=== PATIENT | male | born 1940 | race Caucasian/White ===

== ENCOUNTER 2019-08-06 23:47 | Inpatient (IN) | payer MEDICARE, OTHER ==
[~2019-08-06] VITALS: Ht 175.3 cm; Wt 64.0 kg
--- NOTE | 2019-08-06 23:50 | NUR ---
PT BROUGHT TO ED FROM HOME BY [facility] AND [employer] FOR CHIEF COMPLAINT OF ALOC. PER MEDICS, PT IS ON HOSPICE FOR UNSPECIFIED TYPE OF CANCER AND IS NORMALLY A GCS OF 17 BUT WHEN HE SAW HIM THIS EVENING HE WAS ONLY RESPONSIVE TO PAIN AND NON-VERBAL. PER MEDICS, PT HAD RONCHI TO BILATERAL LUNGS AND WAS EXPERIENCING DIFFICULTY BREATHING, PT O2 SAT IN THE 60'S ON RA ON SCENE. PT PLACED ON NON-REBREATHER MASK AND O2 SAT INCREASED TO 92%. UPON ARRIVAL TO ED, PT NOTED WITH O2 SAT OF 55% ON RA AND AUDIBLE RONCHI AND RETRACTIONS, PER DR ABRAHAM PT DOES NOT HAVE A GAG REFLEX. PER DR ABRAHAM WE WILL BE INTUBATING PATIENT. PT MOVED FROM ORTHO TO T1 FOR CONTINUATION OF CARE.
--- NOTE | 2019-08-06 23:52 | NUR ---
PER MEDICS, PT TAKES PERCOCET AT HOME FOR PAIN MANAGEMENT. PER DR ABRAHAM WE WILL BE ADMINISTERING NARCAN.
--- NOTE | 2019-08-06 23:53 | NUR ---
1MG IVP NARCAN ADMINISTERED PER DR ABRAHAM VERBAL ORDER.
[2019-08-07] VITALS (19 sets, daily range): BP systolic 78–128; BP diastolic 51–78
--- NOTE | 2019-08-07 00:05 | NUR ---
PT SEDATED WITH 10MG ETOMIDATE IVP VIA R HAND IV. DR ABRAHAM AT BEDSIDE FOR INTUBATION, JONNIE RT AND TEENA RT AT BEDSIDE FOR ASSISTANCE, JON EMT AT BEDSIDE WELL. MEDS PUSHED BY MYSELF ASHLEY SALDAÑA. PT ON FULL CM.
--- NOTE | 2019-08-07 00:06 | NUR ---
PT INTUBATED BY DR ABRAHAM AT THIS TIME. PLACEMENT CONFIRMED BY CHEST RISE AND FALL, AUSCLTATION, AND IMPROVEMENT OF O2 SATURATION. TEENA RT BAGGING PT AT THIS TIME. 22@ THE LIP, 7.5 ETT, R SIDE PLACEMENT. SEE DOCUMENTATION FOR VENT SETTINGS.
--- NOTE | 2019-08-07 00:20 | NUR ---
XRAY AT BEDSIDE TO CONFIRM ETT PLACEMENT
[2019-08-07 00:47] LABS: PLATELET COUNT 320 x10^3mcL (130-400)
[2019-08-07 00:51] LABS: BASOPHIL % 0 % (0-2); RED CELL DISTRIBUTION WIDTH 17.4 % (11.5-14.5)
--- NOTE | 2019-08-07 00:53 | NUR ---
FIO2 TITRATED TO 40% PER DR. ABRAHAM VERBAL ORDER. SPO2 STABLE @ 100%. WILL CONTINUE TO MONITOR. RN NOTIFIED.
--- NOTE | 2019-08-07 00:54 | NUR ---
PER JONNIE RT FIO2 DECREASED TO 40% AT THIS TIME.
[2019-08-07 01:14] LABS: ALKALINE PHOSPHATASE 595 U/L (46-116); ALT/SGPT 54 U/L (16-63); AST/SGOT 86 U/L (15-37); BILIRUBIN TOTAL 0.36 mg/dL (0.20-1.00); CALCIUM 7.7 mg/dL (8.5-10.1); CHLORIDE SERUM 91 mmol/L (98-107); CREATININE SERUM 0.4 mg/dL (0.7-1.3); GLUCOSE SERUM 113 mg/dL (74-106); HDL CHOLESTEROL 38 mg/dL (40-60); SODIUM SERUM 127 mmol/L (136-145)
--- NOTE | 2019-08-07 01:14 | NUR ---
PT SON AT BEDSIDE SPEAKING TO PATIENT AT THIS TIME. PT NOTED TO NOD AND SHAKE HIS HEAD TO THE QUESTIONS HIS SON ASKS. PER PT SON RIZWAN, PT WOULD LIKE TO BE EXTUBATED, DR ABRAHAM AWARE.
[2019-08-07 01:15] LABS: ALBUMIN 1.3 g/dL (3.4-5.0); CHOLESTEROL 97 mg/dL (<200); TOTAL PROTEIN, SERUM 5.6 g/dL (6.4-8.2)
--- NOTE | 2019-08-07 01:15 | NUR ---
DR ABRAHAM AT BEDSIDE DISCUSSING PLAN OF CARE WITH PT SON. RT CALLED TO EXTUBATE PT.
--- NOTE | 2019-08-07 01:15 | NUR ---
PT FAMILY AWARE THAT PT IS UNABLE TO PROTECT HIS AIRWAY AT THIS TIME AND THAT EXTUBATING PT MAY RESULT IN . PT FAMILY AWARE AND WISH TO MOVE FORWARD WITH THE EXTUBATION.
[2019-08-07 01:17] LABS: CARBON DIOXIDE 42.7 mmol/L (21-32); POTASSIUM SERUM 5.9 mmol/L (3.5-5.1)
--- NOTE | 2019-08-07 01:20 | NUR ---
FAMILY WOULD LIKE TO WAIT 15MIN TO EXTUBATE PT TO ALLOW PT TO SEE PT. RT AWARE.
--- NOTE | 2019-08-07 01:40 | NUR ---
PER PT FAMILY THEY WOULD LIKE TO WAIT TO EXTUBATE THE PATIENT FOR X2 DAYS. PT FAMILY STATES THAT THEY WOULD LIKE TO SEE IF HE IMPROVES. DR ABRAHAM AWARE OF CHANGE OF PLAN OF CARE.
--- NOTE | 2019-08-07 02:34 | NUR ---
PT MEDICATED PER ORDER. FAMILY VERBALIZED UNDERSTANDING OF MEDICATION TEACHING. SEE EMAR FOR DETAILS.
[2019-08-07] MEDS ORDERED: LORAZEPAM0.5 MG PO (02:47)
[2019-08-07] MEDS ORDERED: METOPROLOL TART25 M1 PO (02:47)
[2019-08-07] MEDS ORDERED: GLYCOPYRROLATE1 M1 PO (02:48)
[2019-08-07] MEDS ORDERED: ZOF4 PO (02:48)
[2019-08-07] MEDS ORDERED: GOOD SENSE OMEP20 MG PO (02:48)
[2019-08-07] MEDS ORDERED: OXYCODONE HYDRO15 MG PO (02:49)
[2019-08-07] MEDS ORDERED: APAP500 MG PO (02:49)
[2019-08-07] MEDS ORDERED: AMBIEN10 MG PO (02:50)
--- NOTE | 2019-08-07 02:55 | NUR ---
PT FAMILY WISH TO MAKE HIM A DNR, EXPLAINED TO PT FAMILY THAT INPATIENT DOCTOR WILL HAVE THEM SIGN PAPERWORK.
[2019-08-07 03:00] LABS: UA SPECIFIC GRAVITY 1.025 (1.005-1.035); microscopic required? YES; urine erythrocyte NEGATIVE (NEGATIVE)
--- NOTE | 2019-08-07 03:13 | NUR ---
RECIEVED REPORT FROM PIOTR RAMIREZ. NURSING UPDATES. POC DISCUSSED. AWAITING PT ARRIVAL.
--- NOTE | 2019-08-07 03:13 | NUR ---
PT REPORT CALLED TO DEBORAH SALDAÑA TO ASSUME PT CARE.
--- NOTE | 2019-08-07 03:20 | NUR ---
PT TRANSFERRED TO ICU BED 4 BY MARY BY MYSELF, JON EMT, MARIAH EMT, JONNIE RT. PT ACCEPTED BY DEBORAH RN TO ASSUME PT CARE. PT REMAINS INTUBATED BUT AWAKE, EYES TRACKING APPROPRIATELY. PT DOES NOT APPEAR TO BE IN ANY ACUTE DISTRESS. PT TRANSFERRED FROM [facility] TO BED WITHOUT INCIDENT.
--- NOTE | 2019-08-07 03:30 | NUR ---
PT ARRIVED FROM ED W/ RN ASHLEY. NURSING UPDATES. RESUMED CARE OF PT. PT INTUBATED W/ NO SEDATION. ALERT AND ABLE TO FOLLOW SIMPLE COMMANDS. PERRL. ETT 7.5 @ 22LL AND OGT SECURE AND INTACT. VENT TO AC MODE FIO2 40%, RATE 16, VT 400, PEEP 5. O2 SAT 100%. NO S/S OF RESP DISTRESS. LUNG SOUNDS CLEAR ERI. PULSES MOD BUE& WEAK BLE. NSR HR 95 BP 96/60(71). S1S2 TO AUSC. L HAND/WRIST W/ SKIN TEAR DOCUMENTED AND BUTTOCKS W/ DRESSING C/D/I PHOTO'S TAKEN. NOTED PEG TUBE ABD C/D/I. R UPPER SIDED PORTICATH NOTED. F/C SECURE AND INTACT DRAINING FREELY TO GRAVITY. URINE PALE YELLOW. LAC 20G C/D/I W/ NORMAL SALINE NO S/S OF INFILTARTION. SCATTERED ECCHYMOSIS BUE&BLE. SKIN FRAIL.
--- NOTE | 2019-08-07 04:15 | NUR ---
PT FAMILY NOTIFED PER PT REQUEST TO HAVE CODE STATUS CHANGE FROM FULL CODE TO MODIFIED CODE W/ NO COMPRESSIONS. NOTIFIED DR MARTINEZ. DR MARTINEZ @ BEDSIDE.
[2019-08-07 05:59] LABS: PLATELET COUNT 326 x10^3mcL (130-400)
[2019-08-07 06:00] LABS: BASOPHIL % 0 % (0-2); RED CELL DISTRIBUTION WIDTH 17.9 % (11.5-14.5)
[2019-08-07 06:16] LABS: ALKALINE PHOSPHATASE 644 U/L (46-116); ALT/SGPT 59 U/L (16-63); AST/SGOT 89 U/L (15-37); BILIRUBIN TOTAL 0.53 mg/dL (0.20-1.00); CHLORIDE SERUM 89 mmol/L (98-107); CREATININE SERUM 0.5 mg/dL (0.7-1.3); GLUCOSE SERUM 96 mg/dL (74-106); POTASSIUM SERUM 5.1 mmol/L (3.5-5.1); SODIUM SERUM 128 mmol/L (136-145); TOTAL PROTEIN, SERUM 6.8 g/dL (6.4-8.2)
[2019-08-07 06:17] LABS: ALBUMIN 1.5 g/dL (3.4-5.0)
[2019-08-07 06:18] LABS: CARBON DIOXIDE 42.6 mmol/L (21-32)
--- NOTE | 2019-08-07 06:28 | NUR ---
PT RESTING CALMLY IN BED. NO ACUTE CHANGES. WILL ENDORSE.
--- NOTE | 2019-08-07 07:00 | NUR ---
RECEIVED REPORT FROM DEBORAH SALDAÑA. ALL QUESTIONS ANSWERED AND ADDRESSED. WILL ASSUME CARE
--- NOTE | 2019-08-07 09:19 | NUR ---
PT STATING 7/10 PAIN TO THE THROAT AND HIS PENILE AREA DUE TO BRANCH INSERTION. MEDICATED PER EMAR. WILL CONT TO MONITOR.
--- NOTE | 2019-08-07 09:35 | NUR ---
PATIENT ROUNDS WITH DR. PADILLA AND RESIDENTS. CHARGE NURSE AND PRIMARY NURSE AT BEDSIDE. UPDATES PROVIDED AND POC DISCUSSED. WILL CONTINUE TO MONITOR.
--- NOTE | 2019-08-07 12:45 | NUR ---
Initial Nutrition Assessment Dx: Respiratory failure, B/L PNA PMHx: Gastric/Esophageal cancer, Prostate cancer s/p radiation currently in remission PSHx: None Labs: (08/07) Na 128L, AST 89H, WBC 16.9H Meds: Cephulac, Morphine, Protonix, NSIV, Vancocin, Zofran, Zosyn Current Nutrition Support TF from home via PEG tube. Isosource at 60 mL/Hr with 25 mL FWF/Hr I/O: None documented at this time Residuals: None documented Ht: 175 cm Wt: 53 kg BMI: 17.3 (underweight) IBW: 160# %IBW: 73% UBW: 195-200# per son 1.5 years prior Age: 78 y/o elderly male Food Allergies: NKFA Skin: LLQ peg tube, scattered ecchymosis throughout body, skin tear to buttocks Yao: 11 Edema: None GI: Last BM -none since admission Trigger/consult received for TF. Per H and P documentations, pt. admitted with AMS. Pt. currently on home hospice care. Son and family members at bedside with pt. who remains intubated and sedated during visit. Son endorses that pt. receives Isosource at home, and would like to continue brining TF from home to continue nutrition support. States that pt. received Jevity 1.2 at another facility and was unable to tolerate the feedings with nausea and vomiting. No reported N/V at this time. Endorses gradual weight loss of about 30# from 1.5 years ago, due to decreased appetite 2/2 chemotherapy treatment and chronic illness. Problem with: N/V/D/C none Problems with: Chewing: Y Swallowing: Y Recent wt change: 30# x 18 months %wt change: 16% Vitamin/Supplement use: None Physical activity: None d/t chronic illness Education: Diet education is not appropriate at this time, as pt. is sedated and intubated, requiring nutrition support Estimated Nutritional Needs Based on acutal body weight 53 kg, Ve 7.4, T: 36.4 C Energy: 1295 vs 3581-0584 kcal/d (RMR X 2003 PSU vs 30-35 kcal/kg) Protein: 63-80 g/d (1.2-1.5 g/kg)-LBM preservation Fluid: 1295 ml/d (1 ml/kcal) or per doctor Nutrition Diagnosis 1. Underweight r/t chronic medical conditions and associated treatment AEB measured BMI 17.3. Intervention 1. Continue home EN infusion as ordered by provider/brought by family from home. Regimen meets >75% estimated needs. Monitor/Evaluate Goal: TF intake at least 75% of estimated needs Monitor: TF intake, TF tolerance, Labs, GI function F/U in 2-3 days as high risk (08/09-08/10)
--- NOTE | 2019-08-07 12:52 | NUR ---
Intervention 1. Continue home EN infusion as ordered by provider/brought by family from home. Regimen meets >75% estimated needs.
--- NOTE | 2019-08-07 13:36 | NUR ---
SCREEN FOR LOW NORMA SCALE AT RISK CONTINUE PRESSURE ULCER INJURY PREVENTION INTERVENTIONS: -TURN AND REPOSITION PATIENT Q 2H OFFLOAD LEFT AND RIGHT HIPS -ASSESS AND MONITOR SKIN CONDITION DURING POSITION CHANGE -OFFLOAD BILATERAL HEELS BY PLACING PILLOWS UNDER CALVES AT ALL TIMES, UNLESS OTHERWISE CONTRAINDICATED -PRESSURE REDISTRIBUTION SURFACE THERAPY -KEEP SKIN CLEAN AND DRY AT ALL TIMES.
--- NOTE | 2019-08-07 15:18 | NUR ---
OGT REMOVED AT THIS TIME PER DR. RODRIGUEZ DUE TO PT'S PEG TUBE TO LLQ ALREADY IN PLACE.
--- NOTE | 2019-08-07 19:30 | NUR ---
REC'D REPORT FROM ALEX SALDAÑA TO ASSUME CARE. PT INTUBATED WITH NO SEDATION. PT ALERT, ABLE TO FOLLOW COMMANDS. PERRLA NOTED. 7.5 ETT SECURED AT 23 CM LL. NO JVD NOTED. TRACHEA MIDLINE. ETT TO VENT: AC MODE RATE 16, TV 400, PEEP 4, FIO2 40%. CHEST RISE EQUAL AND SYMMETRICAL. LUNG SOUNDS CLEAR BUL, DIM BASES. CONSULTING SERVICES MANAGER IN PLACE SHOWING ST WITH HR 109. CHEST WALL STABLE. DENIES ANY CP. BP 107/63 MAP 80. PULSES PALPABLE X4. CAP REFILL < 3 SECS. BLE 2+ PITTING EDEMA. IV TO LAC INTACT AND PATENT, IVF NS INFUSING @ 100ML/HR. NPO AT THIS TIME. ABD FLAT, SOFT, NONDISTENDED. LUQ PEG TUBE INTACT AND PATENT. DENIES ANY N/V/D. F/C INTACT AND PATENT, DRAINING VIA GRAVITY YELLOW URINE. NO SCROTAL EDEMA. NO PENILE DISCHARGE NOTED. SKIN TEAR TO LEFT HAND AND LEFT BUTTOCK AND SACRUM AREA, DSG CDI. PT CALM AND COOPERATIVE. POSITIVE FAMILY SUPPORT AT BEDSIDE. GEN WEAKNESS. BUE SOFT WRIST RESTRAINTS IN PLACE FOR PT SAFETY. TURNED AND REPOSITIONED Q2H FOR PRESSURE RELIEF. FALL PRECAUTIONS APPLIED AND MAINTAINED. ALL NEEDS MET AT THIS TIME. WILL CONTINUE TO MONITOR.
--- NOTE | 2019-08-07 20:10 | NUR ---
PT AGITATED POINTING AT TUBE WANTING TO PULL OUT. BUE RESTRAINTS IN PLACE. FAMILY MEMBERS AT BEDSIDE TO CONSOLE PT.
--- NOTE | 2019-08-07 21:00 | NUR ---
PT WITH C/O THROAT PAIN AND UNABLE TO SLEEP. MORPHINE IVP GIVEN AT THIS TIME PER MD ORDER.
--- NOTE | 2019-08-07 22:00 | NUR ---
PT SEEN SLEEPING COMFORTABLY. FAMILY MEMBERS AT BEDSIDE.
[2019-08-08] VITALS (17 sets, daily range): BP systolic 95–123; BP diastolic 50–70
--- NOTE | 2019-08-08 04:45 | NUR ---
PTS SON AT BEDSIDE STATES PT C/O WANTING MORE AIR. JONNIE RT AT BEDSIDE TITRATED FIO2 TO 35%.
[2019-08-08 05:24] LABS: PLATELET COUNT 320 x10^3mcL (130-400)
[2019-08-08 05:25] LABS: BASOPHIL % 0 % (0-2); RED CELL DISTRIBUTION WIDTH 17.5 % (11.5-14.5)
--- NOTE | 2019-08-08 05:30 | NUR ---
TOTAL BED BATH PROVIDED, LINENS CHANGED. NO BM NOTED. REPOSITIONED TO COMFORT.
[2019-08-08 05:40] LABS: CALCIUM 7.8 mg/dL (8.5-10.1); CARBON DIOXIDE 39.6 mmol/L (21-32); CREATININE SERUM 0.4 mg/dL (0.7-1.3); GLUCOSE SERUM 69 mg/dL (74-106); MAGNESIUM 1.8 mg/dL (1.8-2.4); PHOSPHOROUS 3.6 mg/dL (2.5-4.9)
[2019-08-08 05:47] LABS: POTASSIUM SERUM 4.4 mmol/L (3.5-5.1); SODIUM SERUM 135 mmol/L (136-145)
[2019-08-08 05:48] LABS: CHLORIDE SERUM 97 mmol/L (98-107)
--- NOTE | 2019-08-08 07:00 | NUR ---
RECIEVED PT AWAKE AND ALERT. ABLE TO FOLLOW SIMPLE COMMANDS AND MAKE NEEDS KNOWN BY GESTURING AND NODDING. PERRL. NO FACIAL DROOP NOTED. SYMMETRICAL SMILE. 7.5 ETT @ 22 LL. TRACHEA MIDLINE. NO JVD. ETT TO VENT: VCV/AC MODE = 5 PEEP, 35% FIO2, 400VT, 16 RATE. RESPIRATIONS ARE EVEN AND UNLABORED. SYMM CHEST WALL EXPANSION. NO ADVENTITIOUS LUNG SOUNDS AUSCULTATED. NO S/S OF RESP DISTRESS NOTED. SINUS TACHYCARDIA ON FISCAL TECHNICIAN. +1 PITTING EDEMA TO BLE. SKIN IS COOL/DRY TO TOUCH, WARNER/BROWN TO BUE, PALE TO BLE. PIV TO LAC INTACT, PORT PATENT, DRESSING CDI. NS INFUSING @ 100 ML/HR. PEG TUBE TO LLQ INTACT, DRESSING CDI. ABD SYMMETRICAL AND ROUNDED. F/C INTACT AND DRAINING VIA GRAVITY. URINE IS YELLOW IN COLOR. NO PENILE DISCHARGE/BLEEDING, NO SCORTAL EDEMA. B/E SOFT WRIST RESTRAINTS APPLIED. JOINTS INTACT. NO CONTRACTURES. PT ABLE TO MOVE ALL EXTREMITIES. GEN WEAKNESS NOTED. HOB 30 DEGREES, X3 SIDE RAILS UP, BED IN LOWEST POSITION, CALL LIGHT WITHIN REACH. FAMILY AT BEDSIDE.
--- NOTE | 2019-08-08 07:00 | NUR ---
RECEIVED REPORT FROM MAO SALDAÑA. UPDATES PROVIDED. ALL QUESTIONS ANSWERED AND ADDRESSED. WILL ASSUME CARE.
--- NOTE | 2019-08-08 07:01 | NUR ---
REPORT GIVEN TO SHILPA SALDAÑA TO ASSUME CARE.
--- NOTE | 2019-08-08 08:00 | NUR ---
TUBE FEEDING FORMULA BROUGHT BY PT'S FAMILY - MARY MAHONEY. TUBE FEEDING INITIATED AT 10 ML/HR WITH 25CC FWF Q1H. GOAL RATE OF 60 ML/HR.
--- NOTE | 2019-08-08 08:45 | NUR ---
VANCOMYCIN TROUGH LEVEL RECEIVED AT 12. PHARMACY NOTIFIED AND CLARIFIED MEDICATION IS OKAY TO GIVE.
--- NOTE | 2019-08-08 10:01 | NUR ---
PATIENT ROUNDS WITH DR. PADILLA AND RESIDENTS. CHARGE NURSE AND PRIMARY NURSE AT BEDSIDE. UPDATES PROVIDED AND POC DISCUSSED. WILL CONTINUE TO MONITOR.
--- NOTE | 2019-08-08 10:10 | NUR ---
GILBERT MALCOLM AT BEDSIDE. PT PLACED ON CPAP AT THIS TIME. VSS.
--- NOTE | 2019-08-08 11:05 | NUR ---
GILBERT MALCOLM AT BEDSIDE. PT PLACED ON CPAP AT THIS TIME. VSS.
--- NOTE | 2019-08-08 12:03 | NUR ---
ISOSOURCE HN TUBE FEEDING ADVANCED TO 20 ML/HR. GRV = 50.
--- NOTE | 2019-08-08 12:08 | NUR ---
PT HAD A MOD AMNT OF LIGHT BROWN/YELLOW STOOL. PT CLEANED, CHUCKS AND GOWN CHANGED, BRANCH CARE COMPLETED. PT TOLERATED WELL WITH NO ACUTE DISTRESS.
--- NOTE | 2019-08-08 12:11 | NUR ---
GILBERT MALCOLM AT BEDSIDE. PT PLACED BACK ON VCV/AC MODE. VENT SETTINGS REMAIN THE SAME. VSS.
--- NOTE | 2019-08-08 19:05 | NUR ---
RECEIVED REPORT FROM SHILPA SALDAÑA. ASSUMING ALL CARE
--- NOTE | 2019-08-08 19:22 | NUR ---
RECEVIED PT LAYING IN BED. PT IS INTUBATED AND ON NO SEDATION. PT IS ABLE TO FOLLOW SIMPLE COMMANDS AND MAKE NEEDS KNOWN BY GESTURING AND WRITING ON PAPER. PUPILS WITH BRISK REACTION TO LIGHT, 3 MM BILAT. GAG REFLEX PRESENT. 7.5 ETT INTACT/SECURED, 22 CM @ LL. ORAL CARE PROVIDED PER VAP PROTOCOL. BREATHING IS E/U ON VENT. VENT SETTINGS: VCV/AC MODE, RATE 16, VT 400, PEEP 5, 35% FIO2. LUNGS SOUND CLEAR TO BUL AND DIMIN TO BLL. SYMMETRICAL CHEST EXPANSION NOTED. S1/S2 HEART SOUNDS AUSCULTATED. CHEST WALL EQUAL AND SYMMETRICAL. PORTACATH NOTED TO RIGHT UPPER CHEST. TS=382, BP 105/67, MAP 78. MOD PULSES NOTED TO BUE AND WEAK PULSES NOTED TO BLE. SKIN IS WARM AND DRY. +1 PITTING EDEMA NOTED TO BLE. CAP REFILL < [address] IV IN PL[address] WITH NO S/S OF INFILTRATION NOTED. NS INFUSING @ 100 ML/HR. SCD IN PLACE. GENERALIZED WEAKNESS. PT ON BEDREST. NO JOINT SWELLING/DEFORMITY NOTED. PT ON BILAT SOFT WRIST RESTRAINT FOR PT SAFETY, GOOD CIRCULATION NOTED. PT ON ISOSOURCE HN TF @ 30 ML/HR WITH 25 CC FWF Q1H. GRV=30, REPLACED. TOLERATING WELL. NO S/S OF N/V NOTED. ABD IS SOFT, ROUND, NONTENDER TO PALPATION. BOWEL SOUNDS ACTIVE X4 QUADRANTS. NO BM NOTED. PEG NOTED TO LLQ INTACT WITH DRESSING CDI. F/C IS INTACT/SECURED, DRAINING VIA GRAVITY WITH YELLOW COLORED URINE. NO SCROTAL EDEMA/PENILE DISCHARGE NOTED. SCATTERED ECCHYMOSIS NOTED TO BUE. SKIN TEAR TO LEFT WRIST WITH VERSATILE DRESSING IN PLACE. SKIN TEAR NOTED TO L BUTTOCK WITH OPTIFOAM DRESSING IN PLACE. PT ON ISOGEL MATTRESS. PT ON TURN SCHED Q2H AND PRN FOR COMFORT. FAMILY AT BEDSIDE. BED IN LOW POSITION. CALL LIGHT IN REACH. WILL CONT TO MONITOR
--- NOTE | 2019-08-08 20:14 | NUR ---
RT AT BEDSIDE FOR BREATHING TREATMENT
--- NOTE | 2019-08-08 20:40 | NUR ---
PT'S SON AT BEDSIDE. UPDATED ON PT'S STATUS. ALL QUESTIONS/CONCERNS ADDRESSED. PER PT'S SON, THE PT TAKES "SLEEPING MEDICATION" AT HOME AT 22:00. PT'S SON REQUESTING THE DOCTOR "ORDER HIM SOMETHING TO HELP HIM SLEEP". DR. OH MADE AWARE.
--- NOTE | 2019-08-08 22:00 | NUR ---
GRV=15. ISOSOURCE HN TF INCREASED TO 40 ML/HR WITH 25 CC FWF Q1H. WILL CONT TO MONITOR.
[2019-08-09] VITALS (18 sets, daily range): BP systolic 91–113; BP diastolic 52–72
--- NOTE | 2019-08-09 01:14 | NUR ---
PT NOTED WITH FACIAL GRIMACING. WHEN ASKED IF HE WAS IN PAIN, PT NODDED HEAD YES. PT MEDICATED WITH MORPHINE 2 MG IVP PER EMAR. WILL CONT TO MONITOR.
--- NOTE | 2019-08-09 02:00 | NUR ---
GRV=20. ISOSOURCE HN TF INCREASED TO 50 ML/HR WITH 25 CC FWF Q1H. WILL CONT TO MONITOR.
--- NOTE | 2019-08-09 05:04 | NUR ---
SUPERINTENDENT [employer] SERVICES AT BEDSIDE FOR AM LAB DRAW
[2019-08-09 05:50] LABS: CALCIUM 7.5 mg/dL (8.5-10.1); CARBON DIOXIDE 38.8 mmol/L (21-32); CHLORIDE SERUM 99 mmol/L (98-107); CREATININE SERUM 0.6 mg/dL (0.7-1.3); GLUCOSE SERUM 86 mg/dL (74-106); MAGNESIUM 1.9 mg/dL (1.8-2.4); PHOSPHOROUS 3.3 mg/dL (2.5-4.9); POTASSIUM SERUM 3.7 mmol/L (3.5-5.1); SODIUM SERUM 139 mmol/L (136-145)
[2019-08-09 05:55] LABS: BASOPHIL % 0.2 % (0-2); PLATELET COUNT 312 x10^3mcL (130-400)
--- NOTE | 2019-08-09 06:10 | NUR ---
FULL BED BATH PROVIDED. GOWN AND LINENS CHANGED. ORAL CARE, BRANCH, AND PERICARE PROVIDED. HEELS OFFLOADED. SCD REAPPLIED. NOTED WHEN CHANGING DRESSING FOR THE PEG TUBE, BUMPER WAS 2 INCHES AWAY FROM THE SKIN. DRESSING REMOVED AT THIS TIME. NOTED PEG TUBING TIP DISPLACED. TUBE FEEDING TURNED OFF AT THIS TIME. ABD NOTED SLIGHTLY DISTENDED. PT DENIES ANY ABD PAIN. DR. VELASQUEZ MADE AWARE. PER DR. VELASQUEZ, WILL ORDER KUB. WILL ANTICIPATE NEW ORDER.
--- NOTE | 2019-08-09 06:58 | NUR ---
REPORT GIVEN TO SHILPA SALDAÑA. ALL QUESTIONS/CONCERNS ADDRESSED. ENDORSING ALL CARE
--- NOTE | 2019-08-09 07:00 | NUR ---
RECIEVED REPORT FROM NICK SALDAÑA. UPDATES PROVIDED. WILL ASSUME CARE
--- NOTE | 2019-08-09 07:00 | NUR ---
RECIEVED PT INTUBATED WITH NO SEDATION. AWAKE AND ALERT. ABLE TO FOLLOW SIMPLE COMMANDS AND MAKE NEEDS KNOWN BY GESTURING, NODDING, AND WRITING. PUPILS 4MM IN SIZE AND BRISK B/E. PT'S GLASSES ON TABLE. 7.5 ETT @ 22 LL. ETT TO VENT: VCV/AC MODE = 5 PEEP, 35% FIO2, 16 RATE, 400 VT. RESPIRATIONS ARE E/U. SYMMETRICAL CHEST WALL EXPANSION NOTED. NO S/S OF RESP DISTRESS NOTED. NORMAL SINUS RHYTHM ON LINE OUT WORKER. HR = 98. NO S/S OF CP AT THIS TIME. ALEJANDRINA CATH NOTED TO R UPPER CHEST. TRACHEA MIDLINE. NO JVD PRESENT. +1 PITTING EDEMA TO BLE. SKIN IS WARM/DRY TO TOUCH, WARNER/BROWN IN COLOR TO BUE, PALE IN COLOR TO BLE. PIV TO L AC INTACT, PORT PATENT, DRESSING CDI. NS INFUSING @ 100 ML/HR. SCATTERED ECCHYMOSIS TO BUE. SKIN TEAR NOTED TO L WRIST WITH VERSATEL APPLIED. SKIN TEAR TO BUTTOCKS WITH DRESSING CDI. ABD IS SLIGHTLY FIRM, SYMMETRICAL, AND ROUNDED. HYPOACTIVE BOWEL SOUNDS X4. DRESSING TO LLQ DUE TO PEG TUBE DISLODGEMENT. F/C INTACT AND DRAINING VIA GRAVITY WITH NO DEPENDENT LOOPS NOTED. URINE IS YELLOW IN COLOR WITH GOOD OUTPUT. NO PENILE DISCHARGE/BLEEDING, NO SCROTAL EDEMA NOTED. B/E SOFT WRIST RESTRAINTS APPLIED FOR PT'S SAFETY. SCD TO BLE. ISOGEL MATTRESS IN USE. HOB 30 DEGREES, X3 SIDE RAILS UP, BED IN LOWEST POSITION, CALL LIGHT WITHIN REACH. FAMILY AT BEDSIDE.
--- NOTE | 2019-08-09 07:07 | NUR ---
XRAY AT BEDSIDE FOR KUB.
--- NOTE | 2019-08-09 08:10 | NUR ---
DR. RODRIGUEZ AT BEDSIDE ASSESSING PT. POC DISCUSSED WITH PATIENT AND PATIENT'S FAMILY MEMBERS. PT'S SON STATES THAT WHEN THE FAMILY GETS HERE, THEY PLAN ON EXTUBATING AND PLACING ON COMFORT CARE - MORPHINE GTT. AWAITING DR. RODRIGUEZ'S ORDERS AT THIS TIME. WILL CARRY OUT WHEN RECIEVED.
--- NOTE | 2019-08-09 08:15 | NUR ---
RT AT BEDSIDE ASSESSING PT. BREATHING TREATMENT BEING GIVEN AT THIS TIME.
--- NOTE | 2019-08-09 08:47 | NUR ---
DR. PADILLA AND RESIDENTS AT BEDSIDE ASSESSING PT. POC DISCUSSED. PT'S SON ASKING ABOUT A NEW PEG TUBE PLACEMENT. DR. PADILLA EXPLAINED THE PROCEDURE. PT'S SON WILL TALK TO PT ABOUT WHAT HIS WISHES ARE REGARDING PEG TUBE.
--- NOTE | 2019-08-09 09:21 | NUR ---
DRESSING TO LLQ SOILED WITH LIGHT BROWN/GREEN OUTPUT. NEW DRESSING APPLIED AT THIS TIME.
--- NOTE | 2019-08-09 11:00 | NUR ---
PT'S SON STATING THAT PT DOES NOT WANT TO BE EXTUBATED AND PLACED ON COMFORT CARE AND WANTS TO HAVE A FEEDING TUBE PLACED TO INITIATE TUBE FEEDINGS AGAIN. EXPLAINED TO THE PT'S SON THE RISKS OF PLACING G-TUBE. GAVE THE PT'S SON ANOTHER OPTION TO PLACE NGT FOR TUBE FEEDINGS. PT'S SON AGREED TO HAVE IT PLACED. DR. VELASQUEZ AND DR. RODRIGUEZ NOTIFIED OF THE FAMILY'S WISHES. ANTICIPATING ORDERS AT THIS TIME. WILL CARRY OUT ONCE RECIEVED.
--- NOTE | 2019-08-09 12:05 | NUR ---
PT GRIMACING AND NODDED THAT HE WAS IN PAIN. 2 MG OF MOORPHINE IVP GIVEN PER EMAR. WILL CONT TO MONITOR.
--- NOTE | 2019-08-09 12:19 | NUR ---
PT'S SON STATING THAT BEFORE THE PREVIOUS PEG TUBE PLACEMENT IN APRIL 2019, AN NGT COULDN'T BE PLACED DUE TO ULCERS AND BLOCKAGE BEFORE. PT'S SON STATED THAT DR. FELDER PLACED THE PEG TUBE. DR. VELASQUEZ NOTIFIED. SHE CONSULTED DR. FELDER AT THIS TIME AND STATED TO HOLD OFF ON INSERTING THE NGT,
--- NOTE | 2019-08-09 12:26 | NUR ---
GILBERT MALCOLM AT BEDSIDE ASSESSING PT. PT PLACED ON CPAP. VSS. WILL CONT TO MONITOR.
--- NOTE | 2019-08-09 13:02 | NUR ---
Follow-Up Nutrition Assessment Dx: Respiratory failure, B/L PNA Labs: (08/09) Ca 7.5L, WBC 13.4H Meds: Cephulac, Morphine, Protonix, NSIV, Vancocin, Zofran, Zosyn Current Nutrition Support TF Isosource @ goal rate 60 mL/Hr with 25 mL FWF Q1H brought in from home per family requests I/O: (08/09) 3683/1650 +2032 (08/08) 2273/1750 +523 TF intake: 525 mL (08/09) Residuals: 10 mL Weights: 53.3 kg Skin: LLQ peg tube, scattered ecchymosis throughout body, skin tear to buttocks Yao: 11 Edema: None GI: last BM 300 mL PEG tube dislodged at this time per provider progress notes and bedside RN; unable to provide tube feedings. Remains intubated during visit. Family is considering extubation and comfort care at this time per provider. No reports GI distress at this time or significant GRV from previous assessment. Estimated Nutritional Needs Based on actual body weight 53 kg, Ve 7.4, T: 36.4 C Energy: 1295 vs 8793-3697 kcal/d (RMR X 2003 PSU vs 30-35 kcal/kg) Protein: 63-80 g/d (1.2-1.5 g/kg)-LBM preservation Fluid: 1295 ml/d (1 ml/kcal) or per doctor Nutrition Diagnosis 1. Underweight r/t chronic medical conditions and associated treatment AEB measured BMI 17.3. (ongoing) Intervention 1. Continue home EN infusion as ordered by provider/brought by family from home. Regimen meets >75% estimated needs. Monitor/Evaluate Goal: TF intake at least 75% of estimated needs (not met) Monitor: TF intake, TF tolerance, Labs, GI function F/U in 2-3 days as high risk (08/12-08/14)
--- NOTE | 2019-08-09 13:03 | NUR ---
Intervention 1. Continue home EN infusion as ordered by provider/brought by family from home. Regimen meets >75% estimated needs.
--- NOTE | 2019-08-09 14:46 | NUR ---
GILBERT RT AT [facility] GIVING BREATHING TX.
--- NOTE | 2019-08-09 15:25 | NUR ---
LLQ DRESSING SOILED WITH SMALL AMNT OF GREEN DRAINAGE FROM PREVIOUS PEG TUBE PLACEMENT. NEW DRESSING APPLIED.
--- NOTE | 2019-08-09 18:23 | NUR ---
PT PUT BACK ON VCV/AC: RATE 16, TV 400, PEEP 5, FIO2 35%.
--- NOTE | 2019-08-09 19:05 | NUR ---
RECEIVED REPORT AND PATIENT FROM SHILPA SALDAÑA. RECEIVED PT INTUBATED, NO SEDATION, INTACT TO VENT. PT ATTACHED TO FULL FRUIT OR NUT CROPS FARM MANAGER AND CONTINUOUS PULSE OXIMETRY, NO ACUTE RESP DISTRESS. LAC 20 G INTACT, PORT PATENT, INFUSING NS @ 100 ML/HR. F/C DRAINING TO GRAVITY CLEAR YELLOW URINE, INTACT. BED AT LOWEST SETTING, CALL LIGHT WITHIN REACH, HOB ELEVATED 45 DEGRES PER PT COMFORT. SEE NURSE ASSESSMENT FOR MORE DETAILS.
--- NOTE | 2019-08-09 22:07 | NUR ---
PT REPORTING 7/10 GENERALIZED SHARP BACK PAIN. MEDICATED WITH MORPHINE PER EMAR.
[2019-08-10] VITALS (18 sets, daily range): BP systolic 97–150; BP diastolic 43–68
--- NOTE | 2019-08-10 02:40 | NUR ---
PT REPORTING 7/10 GENERALIZED SHARP BACK PAIN. WILL ADMINISTER MORPHINE IVP PER EMAR.
[2019-08-10 05:39] LABS: PLATELET COUNT 318 x10^3mcL (130-400)
[2019-08-10 05:48] LABS: BASOPHIL % 0 % (0-2); RED CELL DISTRIBUTION WIDTH 18.2 % (11.5-14.5)
[2019-08-10 05:55] LABS: CALCIUM 7.7 mg/dL (8.5-10.1); CARBON DIOXIDE 37.6 mmol/L (21-32); CHLORIDE SERUM 102 mmol/L (98-107); CREATININE SERUM 0.6 mg/dL (0.7-1.3); PHOSPHOROUS 3.7 mg/dL (2.5-4.9); POTASSIUM SERUM 3.6 mmol/L (3.5-5.1); SODIUM SERUM 141 mmol/L (136-145)
[2019-08-10 05:58] LABS: GLUCOSE SERUM 56 mg/dL (74-106)
--- NOTE | 2019-08-10 06:16 | NUR ---
D50 IVP GIVEN PER EMAR FOR GLUCOSE OF 56 PER MD ORDER.
--- NOTE | 2019-08-10 06:22 | NUR ---
D5 NORMAL SALINE GTT INTIATED @ 100 ML/HR, NORMAL SALINE GTT D/C'D AT THIS TIME PER MD ORDER.
--- NOTE | 2019-08-10 06:59 | NUR ---
BLOOD SUGAR RECHECK POST D50 IVP PER EMAR, BLOOD SUGAR NOW 133, DR. VELASQUEZ MADE AWARE.
--- NOTE | 2019-08-10 07:17 | NUR ---
GAVE REPORT TO PIOTR RAWLS. UPDATES GIVEN QUESTIONS ANSWERD. ENDORSED CARE.
--- NOTE | 2019-08-10 07:23 | NUR ---
RECEIVED PT'S REPORT FROM LEAVING NURSE. PT REST ON BED, EASILY AROUSED VIA AUDITORY STIMULI. REMOVED PT'S ERI SOFT WRIST RESTRAINTS PER HIS SON REQUEST. PT IS CALM WITHOUT SEDATION. PT BREATHING VIA VENT AC MODE, EVEN, UNLABORED. BRANCH IN PLACE, DRAINING VIA GRAVITY. G TUBE IS OUT, REDNESS AND GREENISH DRAINAGE NOTED. PT ON AIR MATTRESS. IV SITE PATENT, INTACT. IVF D5 NS INFUSING AT 100ML/HR. WILL CONTINUE TO MONITOR.
--- NOTE | 2019-08-10 08:48 | NUR ---
DR. FELDER AT BEDSIDE ASSESSED PT AND TALKED TO PT'S SON. US ABD G TUBE SITE TO RULE OUT ABSCESS IS ORDERED PER DR. FELDER.
--- NOTE | 2019-08-10 09:10 | NUR ---
RECHECK PT'S BS 97. PT NPO, IV D5 NS INFUSING AT 100ML/HR. WILL CONTINUE TO MONITOR. PT BREATHING ON CPAP MODE, TOLERATE WELL AT THIS TIME. PT'S SON AT BEDSIDE.
--- NOTE | 2019-08-10 09:25 | NUR ---
PATIENT ROUNDS WITH DR. PADILLA AND RESIDENTS. CHARGE NURSE AND PRIMARY NURSE AT BEDSIDE. UPDATES PROVIDED AND POC DISCUSSED. WILL CONTINUE TO MONITOR.
--- NOTE | 2019-08-10 17:04 | NUR ---
PT IS RESTING, BREATHING VIA VENT CPAP MODE. TOLERATE WELL. EVEN, UNLABORED. PT'S DAUGHTER AT BED SIDE.
--- NOTE | 2019-08-10 19:15 | NUR ---
RECIEVED REPORT FROM PIOTR RAWLS. POC DISCUSSED. NURSING UPDATES. RESUMED CARE OF PT. SEE SHIFT ASSESSMENT FOR ASSESSMENT.
--- NOTE | 2019-08-10 22:27 | NUR ---
ADM PRN PER ASSISTANCE CELE SALDAÑA MORPHINE FOR PT BACK PAIN. PAIN 06/10. SEE MAR FOR ADMIN TIME AND ADMIN.
--- NOTE | 2019-08-10 23:54 | NUR ---
SON ASKED ABOUT PROCEDURE TOMORROW FOR J TUBE PLACEMENT. NOTIFIED THAT DR HUTCHINS RECOMMENDED THAT THE NOTES HE PUT IN STATED THAT HE RECOMMEND IT NOT BE DONE. SON NOTIFIED AND BECAME UPSET, ASKED FOR PROCEDURE TO BE DONE AND FOR A RE-EVALUATION. SON NOTIFIED OF OTHER POSSIBILITIES. SON STATED "I KNOW THAT THE PROGNOSIS ISN'T GOOD/RECOMMENDED BUT HE CANT JUST SIT AND WATCH HIM " SON BECAME CALM WHEN OTHER OPTIONS WILL BE EVALUATED AND NOTE STATING THAT HE WOULD LIKE TO SEE WHAT CAN BE DONE.
[2019-08-11] VITALS (18 sets, daily range): BP systolic 111–159; BP diastolic 40–78
--- NOTE | 2019-08-11 01:03 | NUR ---
PT RESTING CALMLY IN BED. NO ACUTE CHANGES. VS WNL.
[2019-08-11 05:47] LABS: BASOPHIL % 0.3 % (0-2); PLATELET COUNT 309 x10^3mcL (130-400)
[2019-08-11 05:54] LABS: RED CELL DISTRIBUTION WIDTH 17.8 % (11.5-14.5)
--- NOTE | 2019-08-11 05:54 | NUR ---
PT CLEANED AND LINENS CHANGED. PT TOLERATED WELL. WILL ENDORSE TO ONCOMING RN.
[2019-08-11 06:01] LABS: CALCIUM 7.8 mg/dL (8.5-10.1); CARBON DIOXIDE 36.6 mmol/L (21-32); CHLORIDE SERUM 103 mmol/L (98-107); CREATININE SERUM 0.8 mg/dL (0.7-1.3); GLUCOSE SERUM 116 mg/dL (74-106); MAGNESIUM 1.9 mg/dL (1.8-2.4); PHOSPHOROUS 3.2 mg/dL (2.5-4.9); POTASSIUM SERUM 3.3 mmol/L (3.5-5.1); SODIUM SERUM 141 mmol/L (136-145)
--- NOTE | 2019-08-11 07:25 | NUR ---
RECEIVED PT'S REPORT FROM LEAVING NURSE. PT'S SON AT BEDSIDE. PT BREATHING ON VENT AC MODE, EVEN. BRANCH IN PLACE, DRAINING VIA GRAVITY. NO SCHEDULE FOR ANY SURGERY BY THIS TIME. PT'S SON AWARE. IVF D5NS INFUSING AT 50ML/HR, KCL IS INFUSING. WILL CONTINUE TO MONITOR.
--- NOTE | 2019-08-11 08:17 | NUR ---
DECREASED FiO2 TO 25%.
--- NOTE | 2019-08-11 09:36 | NUR ---
INCREASED FiO2 TO 30%.
--- NOTE | 2019-08-11 10:19 | NUR ---
DR RIZZO AND DR VELASQUEZ AT BEDSIDE. POC DISCUSSED BEDSIDE WITH FAMILY.
--- NOTE | 2019-08-11 12:02 | NUR ---
PT'S SON AT BEDSIDE. PT IS AWAKE, COMMUNICATE WITH THEM BY WRITING. PT BREATHING ON AC MODE, EVEN, UNLABORED. FIO2 30% AT THIS TIME.
--- NOTE | 2019-08-11 14:31 | NUR ---
DR RODRIGUEZ AT BEDSIDE TO ASSESS PATIENT. UPDATES PROVIDED TO PATIENT'S DAUGHTER WITH ALL QUESTIONS AND CONCERNS ADDRESSED.
--- NOTE | 2019-08-11 14:31 | NUR ---
DR. RODRIGUEZ AT BEDSIDE, PLACED PT ON CPAP 5 WITH PSV 15 AND FiO2 30%.
--- NOTE | 2019-08-11 16:53 | NUR ---
PT COMPLAIN OF STABBING PAIN AT THROAT BY GESTURES. RT CHACHA ADJUSTED ETT, BUT NOT HELP RESOLVE THE PAIN. MORPHINE 2MG GIVEN PER PRN ORDER.
--- NOTE | 2019-08-11 18:17 | NUR ---
DR FELDER ON UNIT TO ASSESS PATIENT. UPDATES PROVIDED BY NURSING. PER DR FELDER, HE WILL SPEAK WITH PATIENT TOMORROW REGARDING PLACEMENT OF NGT. WILL ENDORSE TO ONCOMING BATCH TRUCKER.
--- NOTE | 2019-08-11 18:21 | NUR ---
PT'S DAUGHTER AT BEDSIDE. PT RESTING, PAIN IS RELIEVED BY MORPHINE. PT IS STILL TACHYPENIC RR 25. WILL ENDORSE PT'S CARE TO COMING NURSE.
--- NOTE | 2019-08-11 19:15 | NUR ---
RECEIVED PT IN BED COMFORATBLY RESTING WITH FAMILY AT BEDSIDE.AOOX4. ABLE TO RESPONDS. NO ACUTE RESPIRATORY DISTRESS NOTED. DENIES ANY PAIN OR DISCOMFORT. 7.5 ETT@22CM LL. EENT FREE OF DISCHARGE. EDEMA TO BUE AND BLE. SCD IN PLACED. TURN Q2HR. F/C IN PLACED DRAINING TO GRAVITY WITH QASIM COLOR URINE. IV SITE PATENT AND INTACT. HOB ELEVATED. BED IN LOWEST POSITION,CALL LIGHT WITHIN REACH. WILL CONTINUE TO MONITOR.
--- NOTE | 2019-08-11 22:32 | NUR ---
PT FEELING DISCOMFORT. MEDICATED MORPHINE 2MG IV ORDERED. WILL CONTINUE TO MONITOR.
[2019-08-12] VITALS (16 sets, daily range): BP systolic 99–158; BP diastolic 56–80
--- NOTE | 2019-08-12 02:39 | NUR ---
WAS GOING TO MEDICATE PT FOR PAIN PER EMAR WITH HIGH HR AND RR. PT ALSO NODDING YES TO HAVING PAIN. WAS ABOUT TO ADMINISTER MEDICATION WHEN PT THEN REFUSED. WASTED MEDICATION, AND WITNESSED BY SECOND RN.
[2019-08-12 04:59] LABS: BASOPHIL % 0.1 % (0-2); PLATELET COUNT 305 x10^3mcL (130-400)
[2019-08-12 05:10] LABS: RED CELL DISTRIBUTION WIDTH 18.5 % (11.5-14.5)
[2019-08-12 05:11] LABS: CALCIUM 8.2 mg/dL (8.5-10.1); CARBON DIOXIDE 38.1 mmol/L (21-32); CHLORIDE SERUM 104 mmol/L (98-107); CREATININE SERUM 0.7 mg/dL (0.7-1.3); GLUCOSE SERUM 114 mg/dL (74-106); MAGNESIUM 2.1 mg/dL (1.8-2.4); PHOSPHOROUS 2.7 mg/dL (2.5-4.9); POTASSIUM SERUM 3.5 mmol/L (3.5-5.1); SODIUM SERUM 142 mmol/L (136-145)
--- NOTE | 2019-08-12 05:34 | NUR ---
PT APPEARS TO BE SLEEPING. NO ACUTE RESPIRATORY DISTRESS NOTED. DENIES ANY PAIN AT THIS TIME. F/C DONE. TURN Q2HR. BEDSIDE CARE DONE. IVF INFUSING WELL. HOB ELEVATED. BED IN LOWEST POSITION,CALL LIGHT WITHIN REACH. WILL CONTINUE TO MONITOR.
--- NOTE | 2019-08-12 06:23 | NUR ---
PT HAD EPISODE OF V TACH. HR UP TO THE 200'S. ONLY LASTED ABOUT 10 SECONDS. AUSCULTATED FOR HEART TONES. WILL CONTINUE TO MONITOR.
--- NOTE | 2019-08-12 08:15 | NUR ---
35 SEC OF SVT, CARDIAC STRIP PRINTED. RESOLVED WITHOUT INTERVENTION.
--- NOTE | 2019-08-12 08:50 | NUR ---
PLACED PT ON CPAP AT THIS TIME. PT TOLERATINH CPAP. WILL CONTINUE TO MONITOR.
--- NOTE | 2019-08-12 09:00 | NUR ---
PHARMACIST CALLED REGARDING RESPIRATORY CX C&S: STATED VANCO & ZOSYN ARE NOT EFFECTIVE HE THINKS LEVAQUIN WILL BE. WILL UPDATE RESIDENT AND CARRY OUT NEW ORDERS.
--- NOTE | 2019-08-12 09:00 | NUR ---
PT PUT ON CPAP BY KELLY RT, SET TO 15/5.
--- NOTE | 2019-08-12 10:20 | NUR ---
DR. FELDER, [facility], PT'S SON GERONIMO AND MYSELF IN PT'S ROOM TO DISCUSS PLAN OF CARE. PER DR. FELDER HE STATED HE CAN TRY AND PLACE AN NGT IF THAT IS WHAT THE PATIENT WISHES BUT MADE IT CLEAR TO PATIENT THAT IT IS NOT A [place]UR[place]TEE THAT THE NGT PLACEMENT WILL BE SUCCESSFUL. PT AWAKE AND ALERT AND ABLE TO COMMUNICATE THROUGH WRITING. PATIENT WRITING HE WOULD LIKE TO TRY TO HAVE NGT PLACED. PATIENT ALSO WRITING THAT "HE HAS KRYSTAL. NOTHING IS WRONG WITH HIM AND NOT EVEN A NAIL HURTS". PRIMARY RN AWARE OF THE ABOVE.
--- NOTE | 2019-08-12 11:41 | NUR ---
PT PLACED ON FIO2 100% BY RT DURING BEDSIDE NGT PLACEMENT BY DR. FELDER. WILL CONT TO MONITOR.
--- NOTE | 2019-08-12 11:43 | NUR ---
TIMEOUT DONE AT BEDSIDE FOR EGD WITH NJ TUBE PLACEMENT BY DR. FELDER. VITAL SIGNS STABLE AT THIS TIME. NO S/S DISTRESS. DR. FELDER AND GI LAB TEAM AT BEDSIDE FOR PROCEDURE. WILL CONTINUE TO MONITOR PT.
--- NOTE | 2019-08-12 12:00 | NUR ---
DR. RODRIGUEZ, DR. VELASQUEZ, PT'S SON GERONIMO AND MYSELF IN QUIET ROOM TO DISCUSS PLAN OF CARE. PT'S SON AGAIN VERBALIZING PT'S WISHES ARE "TO FIGHT UNTIL THE END". INFORMED PT'S SON THAT THE PT IS VERY WEAK AND IS NOT SURE HE WILL BE ABLE TO BE EXTUBATED. PT'S SON STATED THE ULTIMATE GOAL IS TO "TAKE THE TUBE OUT AND GET HIM HOME BUT, IF HE CAN'T BREATHE WHEN THE TUBE IS OUT HE WANTS IT BACK IN". DR. RODRIGUEZ STATED THAT WE WILL TRY TO EXTUBATE PT IN ORDER TO GET HIM HOME BUT IF WE ARE UNABLE TO EXTUBATE HE WILL NEED A TRACH. PT'S SON IN AGREEMENT FOR TRACH IF PT UNABLE TO BE EXTUBATED.
--- NOTE | 2019-08-12 12:08 | NUR ---
PT VENT SWITCHED BACK TO A/C MODE.
--- NOTE | 2019-08-12 12:15 | NUR ---
Follow-up Nutrition Assessment: IC04/A ROSARIO DE LA VEGARIZWAN FU HR Dx: Respiratory failure, B/L PNA PMHx: Gastric/Esophageal cancer, Prostate cancer s/p radiation currently in remission Labs: (08/12) BG 114H, CA 8.2L, Ammonia 40H, WBC 14.5H, HGB 8.3L Meds: D 50%, morphine, Pepcid, vancomycin, Zofran, zosyn, heparin Diet: NPO, no feeding PO Intake: NPO Weights: (08/10) 52.9 kg, (08/11) 53 kg, (08/12) 68.6 kg (fluctuations likely d/t edema) Skin: skin tear to L and R wrist, L buttocks with optifoam Yao: 12 I/Os: (08/11) 2166/550 (1616) Edema: BUE, BLE GI: Last BM RDN Visit (08/12): Patient is intubated and on ventilator. Per PIOTR Gray, pt will be having NJ placement with Dr. Waterman today. Spoke with patient's son, he said that patient does not tolerate Jevity and so they want to provide Isoscource HN which they will be bringing from home. I explained the son about the importance of having a semi-elemental or elemental formaula considering that the feeding are going to the jejunum and not stomach. Patient's son is wanting to try Vital AF 1.2. Per progress note (08/12), Patient is intubated and not sedated, Dr Joya: Jejunostomy is not recommended. Recommended palliative care. Dr Waterman: Recommended supportive care. He is not sure if he can do the endoscopy and place a nasojejunal tube by the endoscopic method. Estimated Nutritional Needs based on actual body weight 53 kg Energy: 1896-0898 kcal/d (RMR x PSU 2002 vs 30-35 kcal/kg) Protein: 63-80 g/d (1.2-1.5 g/kg) - LBM preservation Fluid: 4198-6769 (1ml/kcal) or per MD Nutrition Diagnosis 1. Malnutrition related to chronic medical conditions, PEJ placement questionable as evidenced by BMI 17.3 kg/m2. (ongoing) Intervention 1. Recommend Vital AF 1.2 @ 10 ml/hr, goal 55ml/hr. Advance 10 ml Q4H. FWF 80ml Q4H. Goal rate will provide 1585 kcal, 99g protein and 1070 ml free water. This will meet >75% of estimated calorie and protein needs of the patient. Discussed recommendations with Dr. Ugarte Monitor/Evaluate Goal: Have pt meet at least 75% of estimated needs Monitor: TF intake/ tolerance, Labs, GI function F/U in 2-3 days as high risk 08/14-
--- NOTE | 2019-08-12 13:33 | NUR ---
PT HAS MODERATE AMT DIVINA RED BLOOD COMING FROM ETT AND MOUTH. DR. FELDER WAS PAGED AND CALLED BACK TO THE UNIT, HE SAID TO JUST SUCTION PRN TO REMOVE SECRETIONS AND THAT HE BELIEVES IT IS FROM THE EGD PROCEDURE. PT OXYGEN SATURATION READING WENT DOWN TO 84%, SO FIO2 ON VENT WAS INCREASED TO 100%. PT SPO2 100% AT THIS TIME. WILL CONTINUE TO MONITOR PT.
--- NOTE | 2019-08-12 13:45 | NUR ---
PT PLACED ON CPAP AT THIS TIME / AND FIO2 35%.
--- NOTE | 2019-08-12 15:50 | NUR ---
TITRATED PT FIO2 FROM 35% TO 30%. PT SPO2 AT 95% PIOTR BERRIOS MADE AWARE OF THESE CHANGES. WILL CONTINUE TO MONITOR.
--- NOTE | 2019-08-12 15:50 | NUR ---
EDEMA NOTED TO PENIS AND SCROTUM, DR. VELASQUEZ NOTIFIED AND CAME TO BEDSIDE TO ASSESS PT. NO NEW ORDERS OR DIRECTIONS AT THIS TIME. PENIS AND SCROTUM SUPPORTED BY TOWEL ROLL AND PILLOWCASE FOR ELEVATION. WILL CONTINUE TO MONITOR PT.
--- NOTE | 2019-08-12 17:20 | NUR ---
SPOKE WITH DR. FELDER AND UPDATED HIM ON KUB RESULTS. PER DR. FELDER SVETLANA NJ IS IN PLACE AND OK TO USE. INSTRUCTED TO REMOVE WIRE AND INITIATE TF JEVITY AT 20ML/HR AND INCREASE BY 10 ML/HR Q 6HRS TO REACH GOAL RATE OF 50 ML/HR. ALSO STATED TO FLUSH NJ WITH 30-50CC OF FREE WATER FLUSH Q 4 HRS TO KEEP NJ OPEN. PER DR. FELDER "TELL THE NURSES TO MAKE SURE THEY CRUSH THE MEDS REALLY GOOD AND CHANGE WHAT THEY CAN TO LIQUID SO IT DOES NOT CLOGG. IF IT CLOGGS I AM NOT GOING TO BE ABLE TO DO IT AGAIN". PRIMARY RN AWARE OF THE ABOVE.
--- NOTE | 2019-08-12 19:10 | NUR ---
RECEIVED REPORT FROM SYEDA SALDAÑA. ASSUMING ALL CARE
--- NOTE | 2019-08-12 19:22 | NUR ---
RECEIVED PT LAYING IN BED. PT IS INTUBATED AND ON NO SEDATION. PT IS ABLE TO FOLLOW SIMPLE COMMANDS AND MAKE NEEDS KNOWN BY GESTURING AND WRITING ON PAPER. PUPILS WITH BRISK REACTION TO LIGHT, 3 MM BILAT. GAG REFLEX PRESENT. 7.5 ETT INTACT/SECURED, 22 CM @ LL. TRACHEA MIDLINE. NO JVD NOTED. ORAL CARE PROVIDED PER VAP PROTOCOL. BLOOD-TINGED SECRETIONS NOTED WHEN SUCTIONED. RIGHT NJ TUBE SECURED IN PLACE. BREATHING IS E/U ON VENT. VENT SETTINGS: VCV/AC MODE, RATE 16, VT 400, PEEP 5, 30% FIO2. CLEAR LUNG SOUNDS TO BUL AND DIMIN TO BLL. SYMMETRICAL CHEST EXPANSION NOTED. S1/S2 HEART SOUNDS AUSCULTATED. CHEST WALL EQUAL AND SYMMETRICAL. PORTACATH TO RIGHT UPPER CHEST. GN=591, BP 111/69, MAP 78. PALPABLE PULSES X4 EXTREMITIES. SKIN IS WARM. +1 PITTINED EDEMA NOTED TO BUE AND +2 PITTING EDEMA NOTED TO BLE. CAP REFILL < 3 SECS. RH IV IN PLACE WITH NO S/S OF INFILTRATION NOTED. D5NS INFUSING @ 50 ML/HR. SCD IN PLACE SKIN COLOR PALE TO BLE. GENERALIZED WEAKNESS. PT ON BEDREST. NO JOINT SWELLING/DEFORMITY NOTED. PT ON ISOGEL MATTRESS. AWAITING TO RECEIVE TUBE FEEDING AT THIS TIME. ABD IS SOFT, ROUND, NONTENDER TO PALPATION. BOWEL SOUNDS HYPOACTIVE X4 QUADRANTS. NO BM NOTED. F/C IS INTACT/SECURED, DRAINING VIA GRAVITY WITH YELLOW COLORED URINE. PENILE AND SCROTAL EDEMA NOTED, ELEVATED ON A PILLOW. SCATTERED ECCHYMOSIS NOTED TO BUE. SKIN TEAR NOTED TO RIGHT AND LEFT WRIST WITH VERSATILE DRESSING IN PLACE. SKIN TEAR TO L BUTTOCK WITH OPTIFOAM DRESSING IN PLACE. PT ON TURN SHED Q2H AND PRN FOR COMFORT. PT IS CALM AND COOPERATIVE. BED IN LOW POSITION. CALL LIGHT IN REACH. WILL CONT TO MONITOR.
--- NOTE | 2019-08-12 22:40 | NUR ---
WHILE ATTEMPTING TO INITIATE TUBE FEEDING, PT'S SON STS," THE LAST TIME THEY GAVE MY FATHER JEVITY TUBE FEEDING, HE DID NOT TOLERATE IT. HE WAS THROWING UP FOR 3 DAYS STRAIGHT. I THINK THIS FEEDING IS GOING TO MAKE HIM FEEL WORSE". PT'S SON REQUESTING TO GIVE PT'S HOME FEEDING, ISOSOURCE HN. DR. OH MADE AWARE. PER DR. OH, OK TO GIVE ISOSOURCE INSTEAD OF JEVITY. AWAITING ORDER
--- NOTE | 2019-08-12 23:10 | NUR ---
ISOSOURCE HN TUBE FEEDING INITIATED AT THIS TIME @ 20 ML/HR WITH 50 CC FWF Q4H. WILL CONT TO MONITOR
--- NOTE | 2019-08-12 23:37 | NUR ---
PT NOTED WITH FACIAL GRIMACING. WHEN ASKED IF PT WAS IN PAIN, PT NODDED HEAD YES. PT MEDICATED WITH MORPHINE 2 MG IVP PER EMAR. WILL CONT TO MONITOR
[2019-08-13] VITALS (18 sets, daily range): BP systolic 99–155; BP diastolic 49–75
--- NOTE | 2019-08-13 03:45 | NUR ---
FULL BED BATH PROVIDED. GOWN AND LINENS CHANGED. ORAL, BRANCH, AND PERICARE PROCIDED. HEELS OFFLOADED.
--- NOTE | 2019-08-13 04:45 | NUR ---
SHAPE HAND AT BEDSIDE FOR AM LAB DRAW
[2019-08-13 05:02] LABS: PLATELET COUNT 282 x10^3mcL (130-400)
--- NOTE | 2019-08-13 05:10 | NUR ---
GRV=0. ISOSOURCE HN TF ADVANCED TO 30 ML/HR WITH 50 CC FWF Q4H.
[2019-08-13 05:16] LABS: BASOPHIL % 0 % (0-2); RED CELL DISTRIBUTION WIDTH 17.8 % (11.5-14.5)
[2019-08-13 05:19] LABS: CARBON DIOXIDE 34.9 mmol/L (21-32); CHLORIDE SERUM 105 mmol/L (98-107); CREATININE SERUM 0.7 mg/dL (0.7-1.3); GLUCOSE SERUM 139 mg/dL (74-106); PHOSPHOROUS 2.8 mg/dL (2.5-4.9); POTASSIUM SERUM 3.2 mmol/L (3.5-5.1); SODIUM SERUM 143 mmol/L (136-145)
--- NOTE | 2019-08-13 07:05 | NUR ---
REPORT GIVEN TO SYEDA SALDAÑA. ALL QUESTIONS/CONCERNS ADDRESSED AT THIS TIME. ENDORSING ALL CARE
--- NOTE | 2019-08-13 07:40 | NUR ---
PLACED PT ON CPAP AT THIS TIME WITH A PSV OF 12. PT TOLERATING CPAP WELL AND IN NO DISTRESS. PIOTR BERRIOS AND RICHARD NOTIFIFED OF THIS SWITCH. WILL CONTINUE TO MONITOR.
--- NOTE | 2019-08-13 09:06 | NUR ---
PT TAKEN OFF CPAP D/T MULTIPLE EPISODES OF SVT. RR IN 30'S. RESIDENT PAGED, AWAITING CALL BACK TO GIVE UPDATE. WILL CONTINUE TO MONITOR PT.
--- NOTE | 2019-08-13 09:17 | NUR ---
DR. VELASQUEZ CALLED BACK TO UNIT, UPDATES PROVIDED REGARDING PT'S EPISODES OF SVT. SHE SUGGESTED BRINGING IT UP DURING ROUNDS AND TO CONTINUE MONITORING PT AT THIS TIME.
--- NOTE | 2019-08-13 09:24 | NUR ---
STAT EKG BEING DONE AT BEDSIDE.
--- NOTE | 2019-08-13 10:23 | NUR ---
5MG LOPRESSOR ADMINISTERED. HR BEFORE ADMINISTRATION 134, HR PRESENTLY 87. WILL CONTINUE TO MONITOR.
--- NOTE | 2019-08-13 12:07 | NUR ---
OPTIFOAM DRESSING ON COCCYX CHANGED, Z GUARD APPLIED, NEW PICTURE OF WOUNDS TAKEN AND PUT IN CHART.
--- NOTE | 2019-08-13 12:42 | NUR ---
SPOKE WITH SKOOG PATCHING MACHINE OPERATOR DYLAN AND INFORMED HER SHE HAD BEEN REQUESTED TO FOLLOW UP WITH PT IN REGARDS TO A PROPER TF GOAL RATE FOR PT. PER DYLAN SHE AGREES WITH GOAL RATE OF 50ML/HR AT THIS TIME. DYLAN IS AWARE PT IS CURRENTLY RECIEVING HOME FORMULA OF ISOSOURCE AND STATED SHE TOLD PT'S SON THAT SHE THINKS VITAL AF WOULD BE A MORE APPROPRIATE FORMULA. PER DYLAN OK TO CONTINUE CURRENT TF ORDER OF ISOSOURCE WITH GOAL RARTE 50ML/HR AND SHE WILL FOLLOW UP TOMORROW.
--- NOTE | 2019-08-13 12:57 | NUR ---
TUBE FEEDING RATE ADVANCED TO 40 ML/HR. WILL CONTINUE TO ASSESS PT FOR TOLERANCE.
--- NOTE | 2019-08-13 14:19 | NUR ---
PT REPOSITIONED FOR COMFORT AT THIS TIME. ON CPAP 09/05, TOLERATING WELL.
--- NOTE | 2019-08-13 14:30 | NUR ---
ATTEMPTED CPAP TRIALS AGAIN AT 1330. WEANING PARAMETERS OBTAINED DURING CPAP TRAIL. NIF, -28.0 VC, 450, RSBI 57.8. DR RODRIGUEZ, PIOTR BERRIOS AND PIOTR RAMOS NOTIFIED OF THE TRIAL AND PARAMETERS. PLACED PT BACK ON FULL SUPPORT AT THIS TIME DUE TO PT BEING TIRED. WILL CONTINUE TO MONITOR.
--- NOTE | 2019-08-13 14:34 | NUR ---
ANOTHER CARTON OF ISOSOURCE HN ADDED TO [place] FEEDING BAG. PT TOLERATING FEED WELL @ 40 ML/HR.
--- NOTE | 2019-08-13 18:17 | NUR ---
PT PERSISTENTLY IN SVT FOR THE LAST [address] OH CALLED, RN REQUESTED PRN TO BRING HR DOWN. SHE SAID SHE WOULD PUT AN ORDER IN. WILL CARRY OUT ORDER WHEN ENTERED. PT DENIES FEELING HIS HEART BEATING FAST.
--- NOTE | 2019-08-13 18:36 | NUR ---
PT HR 118 AT THIS TIME. NO PRN GIVEN. WILL CONTINUE TO MONITOR.
--- NOTE | 2019-08-13 19:20 | NUR ---
RECEIVED PT AND REPORT FROM SYEDA SALDAÑA. RECEIVED PT ATTACHED TO FULL RESEARCH RN SPEC, AND CONTINUOUS PULSE OXIMETRY. PT INTUBATED NO SEDATION INTACT TO VENT. NJ TUBE TO RIGHT NARE, INTACT, PATENT, AND SECURED. F/C DRAINING TO GRAVITY LOW OUTPUT, INTACT/SECURED. D5 NS INFUSING @ 50 CC/HR TO RIGHT HAND 20 G, PORT PATENT, DRESSING CDI. BED AT LOWEST SETTING, CALL LIGHT WITHIN REACH, HOB ELEVATED 30 DEGREES. SEE NURSING ASSESSMENT FOR MORE DETAILS.
--- NOTE | 2019-08-13 19:45 | NUR ---
DR. OH AT NURSING STATION MADE AWARE OF PT'S HR SPIKE TO 160-170'S, SVT ON MONITOR, INTERMITTENTLY THROUGHOUT THIS HOUR. PER DR. OH SHE WILL ORDER IVP METOPROLOL.
--- NOTE | 2019-08-13 21:05 | NUR ---
PT HAD A LOOSE MODERATE BROWN BOWEL MOVEMENT. PT PERIAREA CLEANED, NEW CHUCKS, GOWN, AND OPTIOFOAM CHANGED. Z-GUARD APPLIED TO PT'S ULCER TO BUTTUCK AREA, OPTIFOAM CDI. BRANCH CARE PROVIDED. PROVIDED PT WITH TOTAL CARE BED BATH. PT TOLERATED WELL. PT FLOATED WITH PILLOWS AND HEELS OFFLOADED WITH PILLOWS. [facility]
--- NOTE | 2019-08-13 22:23 | NUR ---
PT REPORTING 7/10 SHARP ABD PAIN. WILL MEDICATE WITH MORPHINE PER EMAR.
--- NOTE | 2019-08-13 23:20 | NUR ---
ISOSOURCE HN TF ADVANCED TO 50 ML/HR, GOAL RATE, WITH 50 CC FWF Q4H. GRV=0. NO S/S OF N/V.
[2019-08-14] VITALS (19 sets, daily range): BP systolic 101–148; BP diastolic 49–78
--- NOTE | 2019-08-14 04:55 | NUR ---
IV TO RIGHT HAND FOUND REMOVED, ANGIOCATH INTACT. RFA 20G IV INITIATED AT THIS TIME, PORT PATENT, NO S/S OF INFILTRATION, DRESSING CDI.
[2019-08-14 05:43] LABS: PLATELET COUNT 261 x10^3mcL (130-400)
[2019-08-14 05:44] LABS: BASOPHIL % 0 % (0-2)
[2019-08-14 05:56] LABS: CALCIUM 7.9 mg/dL (8.5-10.1); CARBON DIOXIDE 36.1 mmol/L (21-32); CHLORIDE SERUM 107 mmol/L (98-107); CREATININE SERUM 0.7 mg/dL (0.7-1.3); GLUCOSE SERUM 136 mg/dL (74-106); MAGNESIUM 1.9 mg/dL (1.8-2.4); PHOSPHOROUS 1.5 mg/dL (2.5-4.9); POTASSIUM SERUM 3.8 mmol/L (3.5-5.1); SODIUM SERUM 144 mmol/L (136-145)
--- NOTE | 2019-08-14 07:10 | NUR ---
GAVE REPORT TO PIOTR ALFONSO. UPDATES GIVEN, QUESTIONS ANSWERED. ENDORSED CARE.
--- NOTE | 2019-08-14 07:30 | NUR ---
PT RESTING IN BED WITH FAMILY PRESENT AT BEDSIDE. PT INTUBATED, NO SEDATION. PT ABLE TO FOLLOW SIMPLE COMMANDS AND ABLE TO MAKE NEEDS KNOWN BYUT GESTURING AND WRITING. PUPILS 3MM AND BRISK BILAT. NO FACIAL DROOP. 7.5 ETT TO VENT, AC MODE: 16 RATE, VT 400, PEEP 5, AND FIO2 30%. RIGHT NJ TUBE INTACT AND SECURED. EENT FREE OF DRAINAGE. TRACHEA MIDLINE. RESP E/U. LUNGS DIM IN BASES. SPO2 98% NO RESP DISTRESS NOTED. RT PROTOCOL. ORAL CARE PROVIDED. PT SINUS TACH ON MONITOR. S1S2 AUSCULTATED. PT DENIES CP AT THIS TIME. PALP PULSES, EDEMA NTOED TO BUE/BLE. BUE WEEPIGN, CHUCKS IN PLACE. ALL EXTRENMITIES ELEVATED ON PILLOWS. SKIN WATRM TO TOUCH AND CONSISTENT WITH ETHNICITY. RFA IV INFUSING D5NS @50. GENERALIZED WEAKNESS. REPOSITION Q2H FOR PRESSURE REDUCTION. ISOSOURCE INFUSING @ 50 WITH FWF 50 Q4H. NO RESIDUAL NOTED. PT DENIES N/V. ABDOMEN ROUND AND NONTENDER. HYPOACTIVE BS. PT DENIES N/V. NO BM NOTED AT THIS TIME. FC WITH POOR URINE OUTPUT DRAINING TO GRAVITY, SECURED IN PLACE. SCROTAL AND PENIS EDEMA NOTED. PT CALM AND COOPERATIVE AT THIS TIME. FAMILY PRESENT AT BEDSIDE. BED IN LOWEST POSITION. WILL CONT TO MONITOR
--- NOTE | 2019-08-14 08:03 | NUR ---
RT PRESENT AT BEDSIDE PROVIDING BREATHING TREATMENT
--- NOTE | 2019-08-14 11:00 | NUR ---
BLADDER SCAN COMPLETE, EST 500 PER SCAN. BRANCH BALLOON DEFLATED AND BRANCH ADVANCED. PT DENIES ABDOMINAL PAIN OR DISCOMFORT. NOTED SLIGHT URINE ON ON CHELSEA. PT CLEANED AT THIS TIME. WILL CONT TO MONITOR
--- NOTE | 2019-08-14 11:43 | NUR ---
Follow-up Nutrition Assessment: IC04/A RIZWAN BALDWIN FU HR Dx: Respiratory failure, B/L PNA PMHx: Gastric/Esophageal cancer, Prostate cancer s/p radiation currently in remission Labs: (08/14) BG 136H, BUN 23H, CA 7.9L, ALB 1.5L, WBC 17.5H, HGB 7.4L Meds: D 50%, morphine, lopressor, Pepcid, Zofran, heparin Diet: NJ Jevity 1.2 @ 20 ml/hr, goal 50 ml/hr, advance 10 ml Q6H, FWF 30-50cc Q4H (use patient's home formula Isoscource HN) PO Intake: NPO Weights: (08/11) 53 kg, (08/12) 68.6 kg, (08/14) 60.5 kg (fluctuations likely d/t edema) Skin: scattered ecchymosis BUE, L buttock ulcer with optifoam Yao: 11 I/Os: (08/14) 2630/175 (2455) Edema: BUE, BLE GI: Last BM: RDN Visit (08/14): Patient is intubated and on ventilator. PEJ tube was placed by Dr. Waterman and he started the patient on TF Jevity 1.2, Patients' family thinks that patient does not tolerate Jevity and therefore they insisted on starting Isoscource HN that they bring from home. Spoke with Dr. Waterman and Dr. Ugarte, they both are aggregable to start Vital AF as per RD's recommendations. Per previous visit note (08/12), I explained the son about the importance of having a semi-elemental or elemental formula considering that the feeding are going to the jejunum and not stomach. Patient's son is wanting to try Vital AF 1.2. Estimated Nutritional Needs based on actual body weight 53 kg Energy: 6774-8445 kcal/d (RMR x PSU 2002 vs 30-35 kcal/kg) Protein: 63-80 g/d (1.2-1.5 g/kg) - LBM preservation Fluid: 6831-0528 (1ml/kcal) or per MD Nutrition Diagnosis 1. Malnutrition related to chronic medical conditions, PEJ placement questionable as evidenced by BMI 17.3 kg/m2. (ongoing) Intervention 1. Recommend Vital AF 1.2 @ 10 ml/hr, goal 55ml/hr. Advance 10 ml Q4H. FWF 80ml Q4H. Goal rate will provide 1585 kcal, 99g protein and 1070 ml free water. This will meet >75% of estimated calorie and protein needs of the patient. Discussed recommendations with Dr. Ugarte Monitor/Evaluate Goal: Have pt meet at least 75% of estimated needs Monitor: TF intake/ tolerance, Labs, GI function F/U in 2-3 days as high risk 08/16-
--- NOTE | 2019-08-14 14:16 | NUR ---
PT HAD LOOSE BROWN BM AT THIS TIME. CLEANED AND REPOSITIONED. SUCTIONING AND ORAL CARE PROVIDED. VSS. WILL CONT TO MONITOR.
--- NOTE | 2019-08-14 15:00 | NUR ---
PT REFUSING REPOSITIONING AT THIS TIME. PT EDUCATED ON IMPORTANCE OF REPOSITIONING. PT VERBALIZED UNDERSTANIND BUT DOES NOT WANT TO BE REPSOITIONED. FAMILY AT BEDSIDE TRWEID TO CONVINCE PT, PT REFUSED. WILL CONT TO MONITOR
--- NOTE | 2019-08-14 15:40 | NUR ---
DR VAZQUEZ AT BEDSIDE TO ASSESS PATIENT. UPDATES PROVIDED TO FAMILY WITH ALL QUESTIONS AND CONCERNS ADDRESSED.
--- NOTE | 2019-08-14 18:40 | NUR ---
PT RESTING IN BED WITH FAMILY PRESENT. ABDOMINAL DRESSING CHANGED AT THIS TIME. BRANCH CARE PROVIDED. PT CLEANED AND AGREEABLE TO REPOSITIONING AT THIS TIME. WILL CONT TO MONITOR
--- NOTE | 2019-08-14 19:05 | NUR ---
RECEIVED REPORT FROM KADEN SALDAÑA. WILL RESUME CARE.
--- NOTE | 2019-08-14 19:15 | NUR ---
PT ENDORSED TO CELE SALDAÑA. ALL QUESTIONS AND CONCERNS ADDRESSED
--- NOTE | 2019-08-14 21:39 | NUR ---
PT HAD LARGE SOFT BM. PT CLEANED AND NEW OPTIFOAM PLACED TO SACRAL AREA. OFFLOADED PT WITH PILLOWS.
--- NOTE | 2019-08-14 22:06 | NUR ---
PT C/O 03/11 BACK PAIN. GIVEN TYLENOL 650MG VIA NG TUBE. WILL REASSESS FOR RELIEF.
[2019-08-15] VITALS (16 sets, daily range): BP systolic 102–139; BP diastolic 64–82
--- NOTE | 2019-08-15 04:25 | NUR ---
[facility]IGHWAY PATROL PILOT AT BEDSIDE FOR BLOOD DRAW.
[2019-08-15 04:58] LABS: BASOPHIL % 0.1 % (0-2); PLATELET COUNT 239 x10^3mcL (130-400)
[2019-08-15 05:06] LABS: CALCIUM 8.1 mg/dL (8.5-10.1); CARBON DIOXIDE 33.9 mmol/L (21-32); CHLORIDE SERUM 107 mmol/L (98-107); CREATININE SERUM 0.7 mg/dL (0.7-1.3); GLUCOSE SERUM 107 mg/dL (74-106); MAGNESIUM 1.7 mg/dL (1.8-2.4); PHOSPHOROUS 2.1 mg/dL (2.5-4.9); POTASSIUM SERUM 4.4 mmol/L (3.5-5.1); SODIUM SERUM 143 mmol/L (136-145)
[2019-08-15 05:14] LABS: RED CELL DISTRIBUTION WIDTH 17.7 % (11.5-14.5)
--- NOTE | 2019-08-15 06:32 | NUR ---
DR. OSWALD AT BEDSIDE ASSESSING PT. UPDATES PROVIDED. MADE AWARE OF LAB VALUES PHOS 2.1, MAG 1.7, HGB 7.4.
--- NOTE | 2019-08-15 07:02 | NUR ---
GAVE REPORT TO KADEN SALDAÑA. ALL QUESTIONS AND CONCERNS ADDRESSED.
--- NOTE | 2019-08-15 07:30 | NUR ---
REPORT RECEIVED FROM PIOTR OAKLEY. PT RECEIVED RESTING IN BED, BED IN LOWEST POSITION, HOB 30 DEGREES, BED WHEELS LOCKED. PT APPEARS COMFORTABLE, NO S/S DISTRESS NOTED. PT INTUBATED, VENT ON A/C VT 400, RATE 14, PEEP 5, FIO2 30%. VSS, HR 99, BP 120/65 (76), O2 97%, RR 22, T 97.9 F. PT AROUSABLE TO VOICE, FOLLOWS COMMANDS, IS ABLE TO COMMUNICATE NEEDS BY GESTURING AND WRITING ON PAPER. WILL CONTINUE MONITORING PT.
--- NOTE | 2019-08-15 08:15 | NUR ---
BRANCH CARE PROVIDED.
--- NOTE | 2019-08-15 09:16 | NUR ---
PT C/O SECRETIONS IN NOSE. RN SUCTIONED NOSE WITH YANKAUER AND PT REPORTED REDUCED NASAL CONGESTION. YANKAUER FOR NOSE ON BEDSIDE TABLE.
--- NOTE | 2019-08-15 10:00 | NUR ---
DR. VAZQUEZ AT BEDSIDE. UPDATES PROVIDED, QUESTIONS ANSWERED. NO CHANGES IN POC AT THIS TIME.
--- NOTE | 2019-08-15 10:03 | NUR ---
PT PUT ON CPAP / BY RT. RR 27, SPO2 96%. NO S/S RESPIRATORY DISTRESS AT THIS TIME. WILL CONTINUE TO MONITOR PT FOR S/S RESPIRATORY DISTRESS.
--- NOTE | 2019-08-15 10:17 | NUR ---
PT PUT BACK ON A/C MODE ON VENT D/T BECOMING TACHYPNEIC TO LOW 30'S RR & SPO2 OF 95%. VENT SENT TO A/C VT 400, FIO2 30%, RATE 16, PEEP 5. WILL CONTINUE TO MONITOR PT.
--- NOTE | 2019-08-15 11:15 | NUR ---
PT HAD 1 LOOSE BROWN BM AT THIS TIME. MODERATE AMT. HYGIENE CARE PROVIDED.
--- NOTE | 2019-08-15 11:30 | NUR ---
DR. CASTELAN AND RESIDENTS AT BEDSIDE. RN UPDATED DR. FRANCIS RE: WBC'S TRENDING UP SINCE CHANGING ABX, ABOUT LOW HGB AND HCT, AND ABOUT LOW PHOSPHOROUS. DR. FRANCIS CHANGED PT BACK TO [facility] FROM [facility]; NO ORDERS FOR BLOOD TRANSFUSION AT THIS TIME; DR. FRANCIS ADDED ORDERS FOR PHOSNAK. WILL CARRY OUT NEW ORDERS.
--- NOTE | 2019-08-15 11:46 | NUR ---
PT C/O BLADDER FEELING FULL. LOW AMT URINE DRAINING INTO BRANCH BAG. RN IRRIGATED F/C TO SEE IF BLOCKED. F/C FLUSHED EASILY, SOME URINE DRAINED INTO BRANCH BAG. PT URINATED AROUND F/C INSERTION INTO TOWEL. HYGIENE CARE PROVIDED, TOWEL AND CHUX REPLACED. WILL CONTINUE TO MONITOR.
--- NOTE | 2019-08-15 11:59 | NUR ---
PT C/O HIS STOMACH FEELING FULL, SO THE TUBE FEEDING HAS BEEN SET TO PAUSE FOR 30 MIN. NO RESIDUAL ASPIRATED FROM NJT. WILL CONTINUE TO MONITOR PT.
--- NOTE | 2019-08-15 12:39 | NUR ---
PT MEDICATED WITH PRN MORPHINE D/T 07/11 PAIN. WHEN ASKED WHERE THE PAIN WAS HE POINTED TO HIS PELVIC REGION AND BACK. WILL REASSESS PAIN LEVEL.
--- NOTE | 2019-08-15 13:37 | NUR ---
PT DENIES PAIN AT THIS TIME.
--- NOTE | 2019-08-15 13:44 | NUR ---
FAMILY OF PT AT BEDSIDE. PT APPEARS CALM, CONTENT.
--- NOTE | 2019-08-15 13:45 | NUR ---
PT DENIES ABDOMINAL DISCOMFORT AND FULL FEELING THAT HE EXPRESSED EARLIER. TUBE FEEDING RESUMED.
--- NOTE | 2019-08-15 16:09 | NUR ---
DRESSING ON LLQ CHANGED. GREEN LIQUID DRAINAGE NOTED ON GAUZE AND ABD PAD. NEW GAUZE AND ABD PAD TAPED TO ABDOMEN. EXCORIATION NOTED AROUND EX-PEG SITE, Z GUARD PUT AROUND OPENING IN SKIN.
--- NOTE | 2019-08-15 16:12 | NUR ---
OPTIFOAM REPLACED ON COCCYX. HYGIENE CARE GIVEN, PT REPOSITIONED ONTO RIGHT SIDE TO OFFLOAD PRESSURE. SMALL AMT SANGUINOUS DRAINAGE NOTED ON OLD OPTIFOAM.
--- NOTE | 2019-08-15 16:25 | NUR ---
PT C/O ABDOMEN FEELING SWOLLEN/FULL. TUBE FEEDING HELD AGAIN AND TO RESUME AFTER 30 MIN. WILL CONTINUE TO MONITOR PT.
--- NOTE | 2019-08-15 17:25 | NUR ---
PT GIVEN 2MG PRN MORPHINE FOR 8/10 PAIN.
--- NOTE | 2019-08-15 18:07 | NUR ---
PT DENIES PAIN AT THIS TIME.
--- NOTE | 2019-08-15 19:45 | NUR ---
RECEIVED REPORT FROM PIOTR LANDA. PT IS ALERT AND ABLE TO FOLLOW COMMANDS. PUPILS 3 MM AND BRISK BILATERALLY. PT IS BREATHING E.U ON VENT. SETTINGS INCLUDE RATE: 16, TV: 400, O2: 30%, PEEP: 5. LUNG SOUNDS SHOW FINE CRACKLES TO BILATERAL UPPER LOBES, DIMINSHIED TO BILATERAL LOWER LOBES. S1 S2 HEART SOUNDS AUSCULTATED. SINUS TACHYCARDIA ON THE MONITOR. PULSES MODERATE X2 BUE, WEAK X2 BLE. CAP REFILL <3 SECS. SKIN IS WARM AND CONSISTENT WITH ETHNICITY. PERIPHERAL IV TO RIGHT WRIST PATENT, DRESSING CDI. D5 NS INFUSING AT 50 ML/HR. ABD IS SOFT AND FLAT WITH ACTIVE BOWEL SOUNDS X4Q. RIGHT NGT PATENT AND INTACT. ALEJANDRINA CATH TO RIGHT UPPER CHEST NOT IN USE. VITAL AF INFUSING AT 30 ML/HR, WITH 10 ML OF RESIDUAL. PT HAS OPENING FROM G TUBE TO RIGHT LOWER QUADRANT, DRESSING CDI WITH SLIGHT GREEN DISCHARGE. BRANCH DRAINING VIA GRAVITY. URINE IS QASIM WITH FAIR OUTPUT. FAMILY AT BEDSIDE. WILL CONTINUE TO MONITOR.
[2019-08-16] VITALS (15 sets, daily range): BP systolic 107–138; BP diastolic 48–84
--- NOTE | 2019-08-16 01:20 | NUR ---
CALLED DR. GOODEN. PT COMPLAINING OF PAIN UPON URINATION. PT STATES HE FEELS FULL, AND THAT HE IS ONLY URINATING IN SMALL AMOUNTS AT A TIME. ATTEMPTED TO TROUBLE SHOOT BUT WITH NO SUCCESS. DAY SHIFT MADE ME AWARE THAT THEY PERFORMED A BLADDER SCAN AND THAT THERE WAS ABOUT 500 ML OF URINE IN THE BLADDER. DR. GOODEN ORDERED AN ULTRASOUND OF THE BLADDER.
--- NOTE | 2019-08-16 05:00 | NUR ---
PROVIDED PT WITH FULL BED BATH, BRANCH CARE, AND VAP CARE. ALL SUCTION EQUIPMENT CHANGED OUT. PT TOLERATED WELL. DRESSING CHANGED ON OLD G TUBE SITE.
--- NOTE | 2019-08-16 05:30 | NUR ---
ANNEALER AT BEDSIDE FOR CXR.
[2019-08-16 05:42] LABS: BASOPHIL % 0.1 % (0-2); PLATELET COUNT 243 x10^3mcL (130-400)
[2019-08-16 05:44] LABS: RED CELL DISTRIBUTION WIDTH 18.4 % (11.5-14.5)
[2019-08-16 06:02] LABS: CALCIUM 8.1 mg/dL (8.5-10.1); CARBON DIOXIDE 35.9 mmol/L (21-32); CHLORIDE SERUM 108 mmol/L (98-107); CREATININE SERUM 0.8 mg/dL (0.7-1.3); GLUCOSE SERUM 105 mg/dL (74-106); PHOSPHOROUS 3.3 mg/dL (2.5-4.9); POTASSIUM SERUM 4.7 mmol/L (3.5-5.1); SODIUM SERUM 144 mmol/L (136-145)
--- NOTE | 2019-08-16 07:30 | NUR ---
RC'D PT RESTING IN BED WITH NO APPARENT SIGNS OF DISTRESS. PT INTUBATED, NO SEDATION. PT ABLE TO FOLLOW SIMPLE COMMANDS AND ABLE TO MAKE NEEDS KNOWN BY GESTURING. PUPILS 3MM AND BRISK BILAT. PERRLA. NO FACIAL DROOP NOTED. 7.5 ETT INTACT AND SECURED, 22 LL. RIGHT NJT INTACT AND SECURED. NO EENT DRAINAGE NOTED. ETT TO VENT, AC MODE: R16 VT 400, FIO2 30, PEEP 5. RESP E/U LUNGS DIM IN BASES. NO S/S OF RESP DISTRESS NOTED. SINUS TACH ON MONITOR, HR108. PT DENIES CP. S1S2 AUSCULTATED. PALP PULSES, EDEMA NOTED TO BUE/BLE. BUE WEEPING. SKIN WARM/COOL TO TOUCH AND CONSISTENT WITH ETHNICITY. EXTREMITIES ELEVATED ON PILLOWS. D5NS INFUSING @50. GENERALIZED WEAKNESS. PT REPOSITIONED Q2H FOR PRESSURE REDUCTION. ISOGEL IN PLACE. TF VITAL AF INFUSING @50 WITH 50 FWF Q4H. NO RESIDUAL NOTED. PT DENIES N/V. ABDOMEN ROUND. HYPOACTIVE BS. F/C WITH QASIM URINE DRAINING TO GRAVITY, SECURED IN PLACE. SCROTAL/PENILE EDEMA NOTED, ELEVATED. PT REPORTS DISCOMFORT. PT CALM AND COOPERATIVE. BED IN LOWEST POSITION. FAMILY PRESENT AT BEDSIDE. WILL CONT TO MONITOR
--- NOTE | 2019-08-16 08:30 | NUR ---
PATIENT WITH RESPIRATIONS 48 AND HR 110. PATIENT REMOVED FROM CPAP AND PLACED BACK ON AC MODE. MACY MALCOLM MADE AWARE.
--- NOTE | 2019-08-16 10:23 | NUR ---
DR CASTELAN AND MED TEAM PRESENT AT BEDSIDE DISCUSSING POC WITH PT. NO NEW ORDERS AT THIS TIME
--- NOTE | 2019-08-16 11:20 | NUR ---
DR VAZQUEZ AT BEDSIDE TO ASSESS PATIENT. PATIENT UPDATES PROVIDED BY NURSING. POC DISCUSSED WITH PATIENT'S FAMILY REGARDING MEETING TOMORROW AM AT 1030. NURSING WILL CONTACT PATIENT'S SON RIZWAN AND ARRANGE APPOINTMENT.
--- NOTE | 2019-08-16 11:50 | NUR ---
TELEPHONED PATIENT'S SON RIZWAN AND ASKED IF A FAMILY MEETING COULD BE ARRANGED TOMORROW WITH DR VAZQUEZ AT 1030. RIZWAN IN AGREEMENT WITH SET TIME AND HE WILL NOTIFY OTHER FAMILY MEMBERS WHO WILL BE IN ATTENDANCE.
--- NOTE | 2019-08-16 13:30 | NUR ---
PT RESTING IN BED WITH NO APPARENT SIGNS OF DISTRESS. RESP E/U ON VENT. PT DENIES DISCOMFORT. FAMILY PRESENT AT BEDSIDE. WILL CONT TO MONITOR
--- NOTE | 2019-08-16 13:41 | NUR ---
RT PRESENT AT BEDSIDE FOR BREATHING TREATMENT
--- NOTE | 2019-08-16 16:15 | NUR ---
ABDOMINAL DRESSING CHANGED AT THIS TIME. MOD GREEN DRAINAGE NOTED. CULTURE OBTAINED PER MD ORDER, TO BE SENT TO LAB. PT TOLERATED DRESSING CHANGE WELL. WILL CONT TO MONITOR
--- NOTE | 2019-08-16 18:02 | NUR ---
PT HAD LOOSE BROWN BM. PT AND LINEN CHANGED. BRANCH CARE PROVIDED. ORAL CARE PROVIDED. WILL CONT TO MONITOR
--- NOTE | 2019-08-16 18:37 | NUR ---
PT C/O DISCOMFORT TO PERINEAL AREA. SCROTAL AND PENILE EDEMA, ELEVATED. PT REQUESTING PAIN MEDICATION. MEDICATED PER EMAR. VSS. WILL CONT TO MONITOR
--- NOTE | 2019-08-16 19:20 | NUR ---
REPORT GIVEN TO PIOTR WEBB. ALL QUESTIONS AND CONCERNS ADDRESSED
--- NOTE | 2019-08-16 19:30 | NUR ---
RECEIVED REPORT FROM PIOTR ALFONSO. PT IS INTUBATED WITH NO SEDATION. 7.5 ETT AT 22 CM AT LL. PT IS BREATHING E.U ON VENT. SETTINGS INCLUDE RATE: 16, TV: 400, O2: 30%, PEEP: 5. LUNG SOUNDS CLEAR TO BILATERAL UPPER LOBES, DIMINSHED TO BILATERAL LOWER LOBES. S1 S2 HEART SOUNDS AUSCULTATED STACHY. PULSES MODERATE X2 BUE, WEAK X2 BLE. CAP REFILL <3 SECS X4. SKIN IS WARM AND CONSISTENT WITH ETHNICITY. PERIPHERAL IV TO RIGHT WRIST PATENT, DRESSING CDI. D5NS INFUSING AT 50 ML/HR. ALEJANDRINA CATH LOCATED TO RIGHT UPPER CHEST NOT IN USE. ABD IS SOFT AND FLAT WITH ACTIVE BOWEL SOUNDS X4Q. PT HAS OPEN G TUBE SITE TO LEFT LOWER QUADRANT WITH DRESSING CDI. BRANCH DRAINING VIA GRAVITY. URINE IS QASIM WITH POOR OUTPUT. PT HAS WOUNDS TO BILATERAL WRISTS WITH VERSATIL IN PLACE, OPTIFOAM TO BUTTOCKS. WEEPING TO BUE. VITAL AF INFUSING AT 50 ML/HR. 0 RESIDUAL. ALL QUESTIONS AND CONCERNS ANSWERED.
--- NOTE | 2019-08-16 21:52 | NUR ---
MEDICATED PT WITH PRN MORPHINE FOR COMPLAINTS OF PAIN ON URINATION. WILL CONTINUE TO MONITOR.
--- NOTE | 2019-08-16 22:37 | NUR ---
SPOKE TO DR. GOODEN ON THE PHONE REGARDING PT HYPERVENTILATING. PT HAS RESPIRATIONS IN HIGH 40'S AND BECOMES VERY ANXIOUS. MORPHINE IS NOT HELPING TO CONTROL PATIENT'S PAIN. DR. WINKLER. 0.5 MG IVP PRN ATIVAN Q6HRS. WILL FOLLOW THROUGH WITH ORDER.
--- NOTE | 2019-08-16 22:55 | NUR ---
DR. GOODEN WANTED TO CHECK BACK IN TO SEE IF ATIVAN WAS PROVIDED, AND HOW THE PATIENT RESPONDED. ALL QUESTIONS AND CONCERNS ANSWERED.
[2019-08-17] VITALS (17 sets, daily range): BP systolic 98–146; BP diastolic 49–77
--- NOTE | 2019-08-17 02:36 | NUR ---
PT HAD ONE SMEAR OF A BM. PROVIDED FULL SET OF CLEAN LINEN TO PATIENT.
--- NOTE | 2019-08-17 04:30 | NUR ---
PT PROVIDED WITH FULL BED BATH, LINENS CHANGED, BRANCH CARE AND VAP CARE PROVIDED. COLOSTOMY BAG PLACED ON SITE OF OLD G TUBE TO HOPEFULLY CATCH DISCHARGE, AND ASSIST WITH SKIN REDNESS. Z GUARD PLACED TO SITE. PT TOLERATED WELL.
[2019-08-17 05:31] LABS: BASOPHIL % 0.4 % (0-2); PLATELET COUNT 212 x10^3mcL (130-400)
[2019-08-17 05:37] LABS: RED CELL DISTRIBUTION WIDTH 18.7 % (11.5-14.5)
[2019-08-17 05:44] LABS: CALCIUM 7.9 mg/dL (8.5-10.1); CARBON DIOXIDE 34.4 mmol/L (21-32); CHLORIDE SERUM 110 mmol/L (98-107); CREATININE SERUM 0.7 mg/dL (0.7-1.3); GLUCOSE SERUM 121 mg/dL (74-106); PHOSPHOROUS 3.8 mg/dL (2.5-4.9); POTASSIUM SERUM 3.8 mmol/L (3.5-5.1); SODIUM SERUM 146 mmol/L (136-145)
--- NOTE | 2019-08-17 05:55 | NUR ---
PT BEGAN TO BECOME EXTREMELY TACHYPNEIC, SATURATIONS WENT DOWN TO 50'S, AND TV WAS EXTREMELY LOW. BEGAN TO BAG PATIENT WITH 100% OXYGEN. SATURATIONS IMPROVED QUICKLY AND WAS ATTACHED BACK ONTO THE VENTILATOR. WILL CONTINUE TO MONITOR.
--- NOTE | 2019-08-17 06:27 | NUR ---
DR. VELASQUEZ AT BEDSIDE FOR UPDATES. ALL QUESTIONS AND CONCERNS ANSWERED. REQUESTED A KUB FOR PT, WANTED TO MAKE SURE THAT NJT CONTINUES TO BE IN PLACE. AUSCULTATED ABD AND I COULD HEAR AIR BOLUS, BUT I WANTED TO BE SURE THAT THE TUBE HAS NOT MOVED.
--- NOTE | 2019-08-17 10:10 | NUR ---
TUBE FEEDING REINITIATED. RN ASKED PT IF HE STILL FELT FULL, HE SAID NO. NOC SHIFT RN PAUSED FEEDING ~0400. WILL MONITOR PT FOR TOLERANCE OF FEEDING.
--- NOTE | 2019-08-17 11:18 | NUR ---
1. Recommend continuing Vital AF 1.2 @ goal rate of 50 ml/hr. FWF 50 ml Q 4H.
--- NOTE | 2019-08-17 11:18 | NUR ---
Follow-up Nutrition Assessment: IC04/A RIZWAN BALDWIN FU HR Dx: Respiratory failure, B/L PNA PMHx: Gastric/Esophageal cancer, Prostate cancer s/p radiation currently in remission Labs: (08/17) NA 146H, BG 121H, BUN 27H, CA 7.9L, ALB 1.0L, WBC 17.2H, HGB 7.4L Meds: Ativan, D 5%, D 50%, morphine, lopressor, Pepcid, Zofran, Zosyn, heparin Diet: NJ Vital AF 1.2 @ 10 ml/hr, goal 50 ml/hr, FWF 30-50 ml Q4H PO Intake: NPO Weights: (08/14) 60.5 kg, (08/15) 69 kg, (08/16) 68.9 kg, (08/17) 68.9 kg (fluctuations likely d/t edema) Skin: skin tear to bilateral wrists, optifoam to sacrum, weeping to BUE Yao: 11 I/Os: (08/14) 2630/175 (2455) Edema: BUE, BLE GI: old G- tube opening has dressing, slight green drainage from site Last BM: 08/17 RDN Visit (08/14): Patient is intubated and on ventilator. Patient is receiving NJ feedings Vital AF 1.2 @ 30 ml/hr. FWF 50 ml Q4H. Per PIOTR Gray, pt was at goal rate of 50 ml/hr yesterday night however he complains of feeling full. Patient is tolerating tube feedings without any residuals and does not have N/V/D/C at this time. Estimated Nutritional Needs based on actual body weight 53 kg Energy: 5530-7537 kcal/d (RMR x PSU 2002 vs 30-35 kcal/kg) Protein: 63-80 g/d (1.2-1.5 g/kg) - LBM preservation Fluid: 6431-0285 (1ml/kcal) or per MD Nutrition Diagnosis 1. Malnutrition related to chronic medical conditions, not receiving TF at goal rate d/t medical conditions as evidenced by BMI 17.3 kg/m2. (ongoing) Intervention 1. Recommend continuing Vital AF 1.2 @ goal rate of 50 ml/hr. FWF 50 ml Q 4H. Monitor/Evaluate Goal: Have pt meet at least 75% of estimated needs Monitor: TF intake/ tolerance, Labs, GI function F/U in 2-3 days as high risk 08/19-
--- NOTE | 2019-08-17 11:30 | NUR ---
RIGHT WRIST IV LEAKING. IV REMOVED, CATHETER INTACT. IV FLUID PAUSED AT THIS TIME. WILL INSERT NEW IV AND RESTART IV FLUID.
--- NOTE | 2019-08-17 13:01 | NUR ---
FAMILY MEETING WITH DR. VAZQUEZ DONE. THE FAMILY WANTS TO TALK WITH THE PT AND HAVE HIM DECIDE WHAT PATH TO GO FAR PALLIATIVE CARE VS TRACHEOTOMY. THE FAMILY VERBALIZED UNDERSTANDING OF THE PT'S CURRENT PROGNOSIS.
--- NOTE | 2019-08-17 13:37 | NUR ---
NEW 22 G PERIPHERAL IV PLACED IN DORSUM OF L HAND. FLUSHES WELL, INFUSING D5NS @ 50 ML/HR. PT TOLERATED INSERTION WELL. WILL CONTINUE TO MONITOR SITE.
--- NOTE | 2019-08-17 15:30 | NUR ---
PT C/O FEELING FULL AGAIN SO TUBE FEEDING HELD AT THIS TIME. WILL REASSESS.
--- NOTE | 2019-08-17 15:50 | NUR ---
OPTIFOAM ON COCCYX REPLACED, NEW PHOTO TAKEN AND PLACED IN CHART. WOUND CARE PROVIDED.
--- NOTE | 2019-08-17 17:27 | NUR ---
TUBE FEEDING RESTARTED AT THIS TIME. WILL CONTINUE MONITORING.
--- NOTE | 2019-08-17 19:15 | NUR ---
RECEIVED PT FROM PIOTR LANDA. PT INTUBATED TO VENT, INTACT. PT ATTACHED TO FULL COAT IRONER HAND AND CONTINUOUS PULSE OXIMETRY. D5 NS INFUSING @ 50 CC/HR TO LEFT HAND 22G PORT PATENT, NO S/S OF INFILTRATION. PT AWAKE/ALERT, NO SEDATION. HOB ELEVATED 45 DEGREES PER PT COMFORT, BED AT LOWEST SETTING, CALL LIGHT WITHIN REACH. NJ TUBE TO RIGHT NARE INTACT/SECURED INFUSING TUBE FEEDING. SEE NURSING ASSESSMENT FOR MORE DETAILS. WILL CONT TO MONITOR.
--- NOTE | 2019-08-17 23:05 | NUR ---
TUBE FEEDING TITRTATED TO 40 ML/HR FROM 30 ML/HR. FWF REMAINS @ 50 ML Q4H. NO S/S OF N/V, PT DENIES ANY GI COMPLAINTS.
[2019-08-18] VITALS (19 sets, daily range): BP systolic 99–141; BP diastolic 56–68
--- NOTE | 2019-08-18 00:31 | NUR ---
DR. FULLER AT BEDSIDE FOR ASSESSMENT. UPDATES PROVIDED BY NURSING. PER DR. FULLER ORDER BLOOD CX X2, URINALYSIS, URINE CULTURE, AND TRACHEAL ASPIRATE GRAM STAIN AND CULTURE. WILL INPUT ORDERS.
--- NOTE | 2019-08-18 00:35 | NUR ---
BRANCH CATHETER CLAMPED AT THIS TIME FOR UA AND URINE CX PER DR. FULLER.
--- NOTE | 2019-08-18 02:05 | NUR ---
PT REPORTING 7/10 GEN ABD PAIN SHARP IN QUALITY. PT MEDICATED WITH MORHPINE IVP PER EMAR.
--- NOTE | 2019-08-18 02:18 | NUR ---
URINE SPECIMEN COLLECTED FOR UA AND URINE CULTURE. BRANCH CATHETER UNCLAMPED AT THIS TIME, REMAINS DRAINING TO GRAVITY.
[2019-08-18 03:19] LABS: UA SPECIFIC GRAVITY 1.025 (1.005-1.035); microscopic required? YES; urine erythrocyte TRACE (NEGATIVE)
--- NOTE | 2019-08-18 03:45 | NUR ---
PAINT BRUSH MAKER PAMELA AT BEDSIDE FOR BLOOD DRAW.
[2019-08-18 04:12] LABS: BASOPHIL % 0.3 % (0-2); PLATELET COUNT 194 x10^3mcL (130-400); RED CELL DISTRIBUTION WIDTH 18.5 % (11.5-14.5)
[2019-08-18 04:25] LABS: CALCIUM 7.5 mg/dL (8.5-10.1); CARBON DIOXIDE 31.8 mmol/L (21-32); CHLORIDE SERUM 107 mmol/L (98-107); CREATININE SERUM 0.9 mg/dL (0.7-1.3); GLUCOSE SERUM 148 mg/dL (74-106); MAGNESIUM 2.2 mg/dL (1.8-2.4); PHOSPHOROUS 3.6 mg/dL (2.5-4.9); POTASSIUM SERUM 3.7 mmol/L (3.5-5.1); SODIUM SERUM 143 mmol/L (136-145)
--- NOTE | 2019-08-18 05:15 | NUR ---
TUBE FEEDING TITRTATED TO 50 ML/HR FROM 40 ML/HR, ACHIEVED GOAL RATE, NO RESIDUAL NOTED. FWF REMAINS @ 50 ML Q4H. NO S/S OF N/V, PT DENIES ANY GI COMPLAINTS.
--- NOTE | 2019-08-18 05:45 | NUR ---
DR. VELASQUEZ AT BEDSIDE FOR ASSESSMENT AND SPEAKING WITH FAMILY ON PLAN OF CARE. NO NEW ORDERS AT THIS TIME.
--- NOTE | 2019-08-18 06:01 | NUR ---
LINE RIDER AT BEDSIDE FOR CHEST XRAY.
--- NOTE | 2019-08-18 07:07 | NUR ---
GAVE REPORT TO STEVEN SALDAÑA. UPDATES PROVIDED, QUESTIONS ANSWERED. ENDORSED CARE.
--- NOTE | 2019-08-18 08:10 | NUR ---
PATIENT ON CPAP AT THIS TIME PER RT. WILL CONTINUE TO MONITOR.
--- NOTE | 2019-08-18 08:20 | NUR ---
PATIENT OFF CPAP AT THIS TIME PER RT. PATIENT STABLE, WILL CONTINUE TO MONITOR.
--- NOTE | 2019-08-18 10:04 | NUR ---
PATIENT ON CPAP AT THIS TIME PER RT. WILL CONTINUE TO MONITOR.
--- NOTE | 2019-08-18 11:00 | NUR ---
DR. VAZQUEZ AT BEDSIDE AT THIS TIME. ALL UPDATES GIVEN. NO NEW ORDERS AT THIS TIME. PER HE STATES TO DISCUSS WITH THE FAMILY WHAT THEIR PLAN IS FOR PATIENT. WILL FOLLOW UP WITH FAMILY WHEN THEY ARRIVE.
--- NOTE | 2019-08-18 13:30 | NUR ---
PATIENT OFF CPAP AT THIS TIME. PATIENT ON AC MODE AT A RATE OF 16, FIO2 OF 30%, PEEP OF 5. PATIENT BREATHING ADEQUATELY WITH NO SIGNS OF RESPIRATORY DISTRESS. WILL CONTINUE TO MONITOR.
--- NOTE | 2019-08-18 18:22 | NUR ---
DAUGHTER AT BEDSIDE AT THIS TIME. DISCUSSED WITH DAUGHTER IF SHE CAME TO A DECISION REGARDING TRACH OR HOSPICE FOR PATIENT. SHE STS THAT SHE STILL NEEDS TO DISCUSS THIS WITH HER BROTHER, AND THEY WILL HAVE AN ANSWER BY TOMORROW. ALSO EXPLAINED TO DAUGHTER THAT THE PATIENT IS ALERT AND CAN COMMUNICATE NEEDS, AND SHOULD DISCUSS WITH PATIENT. DAUGHTER GIVES UNDERSTANDING AND STS WILL HAVE ANSWER BY TOMORROW.
--- NOTE | 2019-08-18 19:06 | NUR ---
REPORT GIVEN TO PIOTR STAHL. ALL UPDATES PROVIDED, ALL QUESTIONS ANSWERED.
--- NOTE | 2019-08-18 19:15 | NUR ---
LAB CALLED, 2ND SET OF BLOOD CULTURES SHOW GRAM POSITIVE COCCI IN CHAINS, DR. JUSTICE MADE AWARE AT NURSING STATION.
[2019-08-19] VITALS (15 sets, daily range): BP systolic 120–145; BP diastolic 49–75
--- NOTE | 2019-08-19 04:40 | NUR ---
ALLERGIST/PEDIATRIC PULMONOLOGIST ESTHER AT BEDSIDE FOR AM BLOOD DRAW.
[2019-08-19 05:24] LABS: BASOPHIL % 0.1 % (0-2); PLATELET COUNT 200 x10^3mcL (130-400)
[2019-08-19 05:26] LABS: RED CELL DISTRIBUTION WIDTH 19.2 % (11.5-14.5)
[2019-08-19 05:43] LABS: CALCIUM 7.4 mg/dL (8.5-10.1); CHLORIDE SERUM 105 mmol/L (98-107); CREATININE SERUM 0.8 mg/dL (0.7-1.3); GLUCOSE SERUM 150 mg/dL (74-106); PHOSPHOROUS 3.2 mg/dL (2.5-4.9); POTASSIUM SERUM 3.9 mmol/L (3.5-5.1); SODIUM SERUM 141 mmol/L (136-145)
[2019-08-19 05:44] LABS: rbc morphology (normal/abnorm) ABNORMAL (NORMAL); schistocyte (helmet cell) 1+
--- NOTE | 2019-08-19 06:00 | NUR ---
DR. VELASQUEZ AT BEDSIDE FOR ASSESSMENT, SPEAKING WITH SON AT BEDSIDE FOR PLAN OF CARE AND CONSENT FOR BLOOD TRANSFUSION. CONSENT SIGNED, PLACED IN CHART. PER SON HE WILL DISCUSS WITH PATIENT AND FAMILY ON PLAN THESE NEXT COUPLE DAYS.
--- NOTE | 2019-08-19 07:07 | NUR ---
GAVE REPORT TO PIOTR ALFONSO. UPDATES GIVEN, QUESTIONS ANSWERED. ENDORSED CARE.
--- NOTE | 2019-08-19 07:30 | NUR ---
RC'D PT RESTING IN BED WITH NO APPARENT S/S OF DISTRESS. PT ALERT/AWAKE. PT INTUBATED, NO SEDATION. PT ABLE TO FOLLOW VERBAL COMMANDS AND ABLE TO MAKE NEEDS KNOWN BY GETSURING/WRITING. PUPILS 3MM AND BRISK. NO FACIAL DROOP NOTED. 7.5 ETT INTACT AND SECURED, 22 LL. RIGHT NJT INTACT AND SECURED. NO EENT DRAINAGE. ETT TO VENT, AC MODE: R16, FIO2 30%, PEEP 5, TV 400. RESP E/U. LUNGS DIM TO BASES. SPO2 96%, NO RESP DISTRESS NOTED. SINUS TACH ON MONITOR, HR 108. S1S2 AUSCULTATED. PT DENIES CP. PALP PULSES, WEAK PULSES TO BLE. EDEMA NOTED TO BUE/BLE, ELEVATED ON PILLOWS. BUE WEEPING. GENERALIZED WEAKNESS. REPOSITION Q2H FOR PRESSURE REDUCTION. ISOGEL MATTRESS IN PLACE. TF INFUSING VITAL AF 50 WITH 50 FWF Q4H. PT TOLERATING WELL, NO RESIDUAL NOTED. ABDOMEN ROUND. HYPOACTIVE BS. PT DENIES N/V. OSTOMY BAG TO LEFT QUADRANT DRAINING BROWN/GREEN DRAINAGE, INTACT AND SECURED. F/C WITH QASIM URINE DRAINING TO GRAVITY, SECURED IN PLACE. PENILE/SCROTAL EDEMA, ELEVATED. SCATTERED ECCYMOSIS, DRILL PRESS SET UP OPERATOR. R/L WRIST SKIN TEAR, DRESSING CDI. OPTIFOAM TO SACRUM, CDI. PT CALM AND COOPERATIVE. BED IN LOWEST POSITION. WILL CONT TO MONITOR
--- NOTE | 2019-08-19 08:00 | NUR ---
RT PRESENT AT BEDSIDE FOR BREATHING TREATMENT
--- NOTE | 2019-08-19 08:05 | NUR ---
WASTE PICKER PRESENT AT BEDSIDE FOR LAB DRAW
--- NOTE | 2019-08-19 09:40 | NUR ---
DR CASTELAN AND RESIDENTS ROUNDING. NO FAMILY AT BEDSIDE. POC DISCUSSED.
--- NOTE | 2019-08-19 10:55 | NUR ---
DR VAZQUEZ AT BEDSIDE WITH MYSELF AND TAMELA CASTILLO/MT (TO TRANSLATE) POC WITH PATIENT. DR VAZQUEZ SPOKE WITH PATIENT REGARDING TRACHEOSTOMY PLACEMENT. PATIENT GESTURED "NO" WHEN ASKED IF HE WOULD LIKE TO PROCEED WITH TRACHEOSTOMY PLACEMENT. DR VAZQUEZ ALSO DISCUSSED THE OPTION OF PALLIATIVE CARE. PATIENT GESTURED "YES" WHEN DR VAZQUEZ PROVIDED INFORMATION REGARDING COMFORT MEASURES. PATIENT AGREED TO DISCUSS WITH FAMILY (WHEN THEY ARRIVE) THAT HE DOES NOT WANT THE TRACHEOSTOMY PLACEMENT. DR VELASQUEZ MADE AWARE.
--- NOTE | 2019-08-19 12:04 | NUR ---
RT PRESENT AT BEDSIDE FOR BREATHING TREATMENT
--- NOTE | 2019-08-19 12:35 | NUR ---
DR VELASQUEZ AND MYSELF SPEAKING WITH PATIENT'S SON RIZWAN PONCE REGARDING POC. MR PONCE FELT THAT DR VAZQUEZ WENT BEHIND HIS BACK ASKING THE PATIENT WHETHER HE WANTED TO PROCEED WITH TRACHEOSTOMY PLACEMENT. AN EXPLANTION WAS GIVEN TO MR PONCE THAT THE PHYSCIANS ONLY WANTED TO MAKE SURE THAT PLAN OF CARE MEETS WITH PATIENT'S WISHES. MR PONCE STATED "THEN YOU KNOW THE DECISION" AND CONTINUED TO STATE THAT HE AND HIS FAMILY WILL COME TOMORROW AT 1000 SO PATIENT MAY BE EXTUBATED.
--- NOTE | 2019-08-19 13:34 | NUR ---
RT PRESENT AT BEDSIDE FOR BREATHING TREATMENT
--- NOTE | 2019-08-19 14:34 | NUR ---
DR RIZZO, DR VELASQUEZ, KADEN SALDAÑA AND TAMELA US/MT (FOR TRANSLATION) AT BEDSIDE TO OBTAIN CONSENT FOR CENTRAL LINE PLACEMENT. PATIENT AGREED TO BLOOD TRANSFUSION HOWEVER REFUSED CENTRAL LINE PLACEMENT.
--- NOTE | 2019-08-19 15:30 | NUR ---
DR RIZZO, TAMELA ASCENCIO, AND KADEN RN PRESENT AT BEDSIDE TO DISCUSS POC. PT EDEMATOUS TO BUE, UNABLE TO GET NEW IV ACCESS 20G FOR BLOOD TRANSFUION. PTS FAMILY NOTIFIED AND EDUCATED ON BLOOD TRAANSFUSION PROTOCOL. PT REFUSING CENTRAL LINE AT THIS TIME. PT FAMILY AND DR RIZZO ON AGREEMENT TO WAIT FOR LABS OF 08/20 AM TO ADDRESS H/H.
--- NOTE | 2019-08-19 15:43 | NUR ---
PT REQUESTING MEDICATION TO HELP RELAX, PT RESTLESS. MEDS GIVEN PER EMAR. WILL CONT TO MONITOR
--- NOTE | 2019-08-19 18:00 | NUR ---
PT REQUESTING PAIN MEDICATION AT THIS TIME. MEDICATED PER EMAR. PT CLEANED AND REPOSITIONED. BRANCH CARE PROVIDED. ORAL CARE PROVIDED. LINEN CHANGED. WILL CONT TO MONITOR
--- NOTE | 2019-08-19 19:05 | NUR ---
RECEIVED REPORT FROM KADEN SALDAÑA. WILL RESUME CARE.
--- NOTE | 2019-08-19 19:15 | NUR ---
RECEIVED PT INTUBATED WITH NO SEDATION. PT ABLE TO MAKE NEEDS KNOWN BY GESTURING AND WRITING. PUPILS 3MM BRISK. 7.5 ETT AT 22LL INTACT AND SECURED. R NGT INTACT AND SECURED. BREATHING E/U. ON VENT VCV-AC MODE WITH SETTINGS OF VT 400, FIO2 30%, R 16, PEEP 5. LUNG SOUNDS HAVE CRACKLES TO UPPER LOBES AND DIMINISHED TO BASES. SINUS TACHY ON HOUSE MOVING SUPERVISOR, HR 118. PT DENIES CHEST PAIN AT THIS TIME. NO REDNESS, SWELLING, OR DRAINAGE TO EENT. CAP REFILL < 3 SEC. PULSES MODERATE TO BUE AND WEAK TO BLE. EDEMA NOTED TO BUE/BLE. GENERALIZED WEAKNESS. ABDOMEN ROUND, NONTENDER. BS HYPOACTIVE X4. NO N/V. BRANCH CATHETER IN PLACE DRAINING VIA GRAVITY MINIMAL AMOUNT OF YELLOW URINE. SKIN HAS SCATTERED ECCYMOSIS TO BODY. L AND R SKIN TEAR, DRESSING CDI. OPTIFOAM TO SARCRAL AREA CDI. SCD'S IN PLACE. PT FLOATED WITH PILLOWS. BED IN LOW POSIITON. CALL LIGHT WITHIN REACH. WILL CONTINUE TO MONITOR.
--- NOTE | 2019-08-19 23:22 | NUR ---
PT C/O FEELING ANXIOUS. GIVEN ATIVAN 0.5MG IVP. WILL REASSESS FOR RELIEF.
[2019-08-20 03:10] VITALS: BP 121/68
[2019-08-20 04:05] VITALS: BP 124/73
--- NOTE | 2019-08-20 04:35 | NUR ---
PT CLEANED. BRANCH CATHETER CARE PROVIDED. ALL LINENS AND GOWN CHANGED.
[2019-08-20 06:00] VITALS: BP 132/61
[2019-08-20 07:15] VITALS: BP 133/63
--- NOTE | 2019-08-20 07:15 | NUR ---
RC'D PT RESTING IN BED, INTUBATED, NO SEDATION. PT ABLE TO FOLLOW SIMPLE COMMANDS AND ABLE TO MAKE NEEDS KNOWN. PT LETHARGIC AT THIS TIME. PUPILS 4MM. NO FACIAL DROOP NOTED. 7.5 ETT INTACT AND SECURED, 22 LL. RIGHT NJT INTACT AND SECURED. EENT FREE OF DISCHARGE. ETT TO VENT, AC MODE; PEEP5, FIO2 30%, TV 400, R16. RESP E/U. LUNGS DIM TO BASES. SPO2 96%. ST ON EDUCATION SUPERVISOR. PT DENIES CP. SKIN COOL TO TOUCH. GENERALIZED WEAKNESS. REPOSITION Q2H. ISOGEL MATTRESS. BUE/BLE EXTREMITIES ELEVATED. TF INFUSING VITAL AF @50 WITH FWF50 Q4H. NO RESIDUAL NOTED. PT DENIES N/V. ABDOMEN ROUND. HYPOACTIVE BS. NO BM NOTED. F/C WITH QASIM URINE DRAINING TO GRAVITY, SECURED IN PLACE. SCROTAL/PENILE EDEMA. SCATTERED ECCYOMSIS, RHEA. R/L WRIST SKIN TEAR, DRESSING CDI. OPTIFOAM TO SACRUM, CDI. BED IN LOWST POSITION. CALL LIGHT IN REACH. FAMILY PRESENT AT BEDSIDE. WILL CONT TO MONITOR
[2019-08-20 08:15] VITALS: BP 128/75
[2019-08-20 08:29] LABS: CALCIUM 7.5 mg/dL (8.5-10.1); CARBON DIOXIDE 33.3 mmol/L (21-32); CHLORIDE SERUM 104 mmol/L (98-107); CREATININE SERUM 0.9 mg/dL (0.7-1.3); GLUCOSE SERUM 119 mg/dL (74-106); POTASSIUM SERUM 4.6 mmol/L (3.5-5.1); SODIUM SERUM 140 mmol/L (136-145)
[2019-08-20 08:35] LABS: PLATELET COUNT 203 x10^3mcL (130-400)
[2019-08-20 08:36] LABS: BASOPHIL % 0 % (0-2); RED CELL DISTRIBUTION WIDTH 19.4 % (11.5-14.5)
--- NOTE | 2019-08-20 09:49 | NUR ---
FAMILY AND TRAINING EXECUTIVE PRESENT AT BEDSIDE. PT RESTING IN BED WITH NO APPARENT S/S OF DISTRESS. WILL CONT TO MONITOR
--- NOTE | 2019-08-20 10:28 | NUR ---
MORPHINE DRIP INITIATED AT THIS TIME PER PROTOCOL PRIOR TO EXTUBATION PER FAMILY REQUEST. WILL CONT TO MONITOR
--- NOTE | 2019-08-20 10:58 | NUR ---
PT EXTUBATED AT THIS TIME. PT TOLERATED WELL. ORAL CARE PROVIDED. PT SUCTIONED AND MADE COMFORTABLE. MORPHINE DRIP INFUSING AT THIS TIME FOR COMFORT CARE PER PT AND FAMILY REQUEST. WILL CONT TO MONITOR
--- NOTE | 2019-08-20 11:19 | NUR ---
1. Patient on palliative care, to be extubated today. No interventions.
--- NOTE | 2019-08-20 11:19 | NUR ---
Follow-up Nutrition Assessment: IC04/A RIZWAN BALDWIN FU HR Dx: Respiratory failure, B/L PNA PMHx: Gastric/Esophageal cancer, Prostate cancer s/p radiation currently in remission Labs: (08/19) BG 150H, BUN 30H, CA 7.4L, ALB 1.0L, WBC 16.2H, HGB 6.5L Meds: Ativan, D 50%, morphine, Lasix, lopressor, Pepcid, Zofran, Zosyn, heparin Diet: [place] Vital AF 1.2 @ 10 ml/hr, goal 50 ml/hr, FWF 30-50 ml Q4H PO Intake: NPO Weights: (08/16) 68.9 kg, (08/17) 68.9 kg, (08/20) 64 kg (fluctuations likely d/t edema) Skin: scattered ecchymosis to body, optifoam to sacrum, L and R skin tear Yao: 11 I/Os: (08/19) 2218/1250 (968) Edema: BUE, BLE GI: Last BM: 08/17 RDN Visit (08/20): Patient is to be extubated today and is on palliative care. Estimated Nutritional Needs based on actual body weight 53 kg Energy: 7339-7043 kcal/d (30-35 kcal/kg) Protein: 63-80 g/d (1.2-1.5 g/kg) - LBM preservation Fluid: 5646-1162 (1ml/kcal) or per MD Nutrition Diagnosis 1. Malnutrition related to chronic medical conditions, not receiving TF at goal rate d/t medical conditions as evidenced by BMI 17.3 kg/m2. (ongoing) Intervention 1. Patient on palliative care, to be extubated today. Monitor/Evaluate Goal: Have pt meet at least 75% of estimated needs Monitor: TF intake/ tolerance, Labs, GI function F/U in 7 days as high risk 08/27
--- NOTE | 2019-08-20 11:35 | NUR ---
DR VAZQUEZ AT BEDSIDE TO DISCUSS PT STATUS AND POC WITH PT AND FAMILY. ALL QUESTIONS AND CONCERNS AT THIS TIME. PER DR, CONTINUE TO MONITOR AND CONTINUE WITH COMFORT CARE. NO NEW ORDERS AT THIS TIME.
--- NOTE | 2019-08-20 11:39 | NUR ---
DR VAZQUEZ SPEAKING WITH PATIENT'S FAMILY. POC DISCUSSED.
--- NOTE | 2019-08-20 12:21 | NUR ---
SOCIAL WORKERS PRESENT AT BEDSIDE TO SPEAK WITH FAMILY
--- NOTE | 2019-08-20 12:35 | NUR ---
PT ASYSTOLE ON [employer]. DR VELASQUEZ AND MYSELF TO BEDSIDE. DR VELASQUEZ PROUNCED PT AT THIS TIME, TOD 1232. FAMILY PRESENT AT BEDSIDE.
--- NOTE | 2019-08-20 12:54 | NUR ---
FARM LOAN REPRESENTATIVE CALLED AT THIS TIME, SPOKE WITH TIAGO. ALL QUESTIONS AND CONCERNS ADDRESSED. AWAITING CALL BACK FROM FARM LOAN REPRESENTATIVE AT THIS TIME
--- NOTE | 2019-08-20 13:01 | NUR ---
[facility] CALLED AT THIS TIME, SPOKE TO JAGDISH QUEVEDO. MRS QUEVEDO UPDATED ON PT INFORMATION. ALL QUESTIONS ADDRESSED AND ANSWERED. PROVIDED WITH REFERRAL NUMBER [id number]. PER JAGDISH, WILL CALL BACK WITH INFORMATION
--- NOTE | 2019-08-20 14:11 | NUR ---
[facility] CALL FROM [facility], SPOKE TO ZEINA BALDWIN ALL QUESTIONS AND CONCERNS ADDRESSED. PER ZEINA, BODY CLEARED FROM [facility] AT THIS TIME. PROVIDED WITH REFERRAL NUMBER [id number].
--- NOTE | 2019-08-20 17:05 | NUR ---
FOLLOWED UP WITH [facility] OFFICE. PER MARIZOL, REPORT NOT RECORDED FROM THIS AFTERNOON @ 1250 WITH LYDIA. FONTANA TO RECORD AT THIS TIME. PROVIDED WITH PT INFORMATION. ALL QUESTIONS ANSWERED. AWAITING CALL BACK AT THIS TIME
--- NOTE | 2019-08-20 17:50 | NUR ---
RC'D CALL FROM DEPUTY LUPE WALKER RETURNING CALL FROM [facility]. PROVIDED DEPUTY WITH PT INFORMATION. ALL QUESTIONS AND CONCERNS ADDRESSED. BODY RELEASED AT THIS TIME PER DEPUTY. . POST MORTEM CARE TO BE PROVIDED AT THIS TIME. FAMILY NOTIFIED AND MADE AWARE OF UPDATES
[2019-08-24 13:22] VITALS: Ht 175.3 cm; Wt 64.0 kg
== END 2019-08-20 19:43 | disposition expired | DRG 870 ==
LOC: ED 23:47 → IC 08-07 02:06
PROVIDERS: Emergency Medicine; Internal Medicine; Internal Medicine Infectious Disease; ADMIT Internal Medicine
PROC: 5A1955Z Respiratory Ventilation, Greater than 96 Consecutive Hours (ICD-10-PCS; principal; 2019-08-07)
PROC: 0BH17EZ Insertion of Endotracheal Airway into Trachea, Via Natural or Artificial Opening (ICD-10-PCS; 2019-08-07)
PROC: 0DJ08ZZ Inspection of Upper Intestinal Tract, Via Natural or Artificial Opening Endoscopic (ICD-10-PCS; 2019-08-12)
DX: A41.9 Sepsis, unspecified organism (principal); J69.0 Pneumonitis due to inhalation of food and vomit; J96.01 Acute respiratory failure with hypoxia; E43 Unspecified severe protein-calorie malnutrition; E87.1 Hypo-osmolality and hyponatremia; Z68.1 Body mass index [BMI] 19.9 or less, adult; I47.1 Supraventricular tachycardia; K31.1 Adult hypertrophic pyloric stenosis; C78.7 Secondary malignant neoplasm of liver and intrahepatic bile duct; C78.02 Secondary malignant neoplasm of left lung; C78.01 Secondary malignant neoplasm of right lung; C78.89 Secondary malignant neoplasm of other digestive organs; K70.31 Alcoholic cirrhosis of liver with ascites; F10.20 Alcohol dependence, uncomplicated; Y90.0 Blood alcohol level of less than 20 mg/100 ml; D63.0 Anemia in neoplastic disease; E87.5 Hyperkalemia; Z66 Do not resuscitate; Z51.5 Encounter for palliative care; Z85.46 Personal history of malignant neoplasm of prostate
CPT/HCPCS: 31500; 36600; 43235; 76770; 82962; A4371; A4628; C9113; G0378; J0171; J0610; J0744; J1200; J1450; J1610; J1644; J1940; J1956; J2020; J2060; J2250; J2270; J2310; J2405; J2543; J2704; J3010; J3370; J3475; J3480; J3490; J7030; J7040; J7042; J7620; Q0092; Q0163; Q9967